=== PATIENT | female | born 1945 | race Caucasian/White ===

== ENCOUNTER 2019-01-18 11:59 | Emergency (ER) | payer OTHER ==
--- OUTSIDE RECORDS SUMMARY | 2019-01-18 12:39 | XMS REPORT ---
:1945 [facility] Address [address] [place] [address] Dr. Are[address]ano [address] [place] [address] Care Team Providers Name Role Phone Unavailable Unavailable Unavailable Problems This patient has no known problems. Allergies, Adverse Reactions, Alerts This patient has no known allergies or adverse reactions. Medications This patient has no known medications.
[2019-01-18 13:22] LABS: Basophils % 0.9 % (0-1.3); Eosinophils % 2.7 % (0-4.4); Hematocrit 42.8 % (36.0-45.0); MPV 8.6 fL (7.6-11.3); Monocytes % 5.8 % (3.3-12.3); RBC Red Blood Cell Count 4.58 M/uL (3.86-4.86)
[2019-01-18 13:38] LABS: Potassium 3.7 mmol/L (3.5-5.1)
[2019-01-18 13:42] LABS: Albumin 4.1 g/dL (3.4-5.0); Bilirubin Direct 0.2 mg/dL (0-0.2); Bilirubin Total 0.7 mg/dL (0.2-1.0); Protein, Total 7.7 g/dL (6.4-8.2)
[2019-01-18 13:47] LABS: Urine Bacteria NONE SEEN /HPF (<20); Urine Culture Reflex Order NOT NEEDED; Urine RBC <5 /HPF (NONE SEEN)
[2019-01-18 14:13] LABS: Urine Blood NEGATIVE (NEG); Urine Glucose NEGATIVE (NEG); Urine Protein NEGATIVE (NEG)
[2019-01-18] MEDS ORDERED: NA CHLORIDE 0.9% 500 ML ONE (14:16)
--- NOTE | 2019-01-18 14:43 | RAD REPORT ---
EXAM DESCRIPTION: CT - Abdomen Pelvis W Contrast - 01/18/2019 2:24 pm CLINICAL HISTORY: Abdominal pain with diarrhea COMPARISON: none. TECHNIQUE: Computed axial tomography of the abdomen pelvis was obtained. 100 cc Isovue-300 was admin istered intravenously. Oral contrast was not requested which limits evaluation of bowel. All CT scans are performed using dose optimization technique as appropriate and may include automated exposure control or mA/KV adjustment according to patient size. FINDINGS: The liver, spleen, pancreas, and adrenal appear unremarkable. Small renal cysts There is no evidence of diverticulitis. A hysterectomy has been performed IMPRESSION: No acute abnormality is displayed.
--- NOTE | 2019-01-18 15:13 | EDPHYS ---
Physician Documentation [facility] Name: Kayleigh Pena Age: 73 yrs Sex: Female : 1945 Arrival Date: 01/18/2019 Time: 12:02 Bed 24 Private MD: ED Physician Marcus Georges HPI: 01/18 13:49 This 73 yrs old Female presents to ER via Ambulatory with complaints of rn Diarrhea. 13:49 The patient presents to the emergency department with diarrhea. Onset: The rn symptoms/episode began/occurred 5 day(s) ago. Possible causes: unknown. The symptoms are aggravated by nothing. The symptoms are alleviated by nothing. Severity of symptoms: At their worst the symptoms were mild in the emergency department the symptoms are unchanged. The patient has not experienced similar symptoms in the past. Reports 5 days of non-bloody diarrhea, appears mucous like, no fever, no nausea/vomiting, denies abd pain. Took pepto bismol without resolution. Reports under a lot of stress lately. . Historical: - Allergies: 12:09 Neosporin ([id number]); bp 12:09 Tape; bp 12:09 Amoxicillin; bp 13:01 Morphine; ss - Home Meds: 12:09 Synthroid 88 mcg Oral tab 1 tab once daily [Active]; olmesartan-hydrochlorothiazide bp oral 40 - 12.5 oral 1 tab once daily for Hypertension [Active]; - PMHx: 12:09 Hypertension; bp - PSHx: 12:09 ; Hysterectomy; Tonsillectomy; Appendectomy; bp - Immunization history:: Adult Immunizations up to date. - Social history:: Smoking status: Patient/guardian denies using tobacco. - Ebola Screening: : No symptoms or risks identified at this time. - Family history:: not pertinent. - Hospitalizations: : No recent hospitalization is reported. ROS: 13:49 Constitutional: Negative for fever, chills, and weight loss, Eyes: Negative for injury, rn pain, redness, and discharge, Cardiovascular: Negative for chest pain, palpitations, and edema, Respiratory: Negative for shortness of breath, cough, wheezing, and pleuritic chest pain, Abdomen/GI: Negative for nausea, vomiting, and constipation, MS/Extremity: Negative for injury and deformity, Skin: Negative for injury, rash, and discoloration, Neuro: Negative for headache, numbness, tingling, and seizure, + generalized weakness Exam: 13:49 Constitutional: This is a well developed, well nourished patient who is awake, alert, rn and in no acute distress. Head/Face: Normocephalic, atraumatic. Eyes: Pupils equal round and reactive to light, extra-ocular motions intact. Lids and lashes normal. Conjunctiva and sclera are non-icteric and not injected. Cornea within normal limits. Periorbital areas with no swelling, redness, or edema. ENT: MMM Abdomen/GI: soft, non-tender, no masses Skin: Warm, dry with normal turgor. Normal color with no rashes, no lesions, and no evidence of cellulitis. MS/ Extremity: Pulses equal, no cyanosis. Neurovascular intact. Full, normal range of motion. Equal circumference. Neuro: Awake and alert, GCS 15, oriented to person, place, time, and situation. Cranial nerves II-XII grossly intact. Motor strength 5/5 in all extremities. Sensory grossly intact. Cerebellar exam normal. Vital Signs: 12:09 BP 176 / 73; Pulse 86; Resp 16; Temp 98; Pulse Ox 99% ; Weight 61.69 kg; Height 5 ft. 7 bp in. (170.18 cm); 13:09 BP 173 / 64 LA (auto/reg); Pulse 60; Resp 16; Temp 97.7; Pulse Ox 100% on R/A; Pain jp3 2/10; 14:00 BP 179 / 56 LA (/reg); Pulse 67; Pulse Ox 100% ; jp3 14:59 BP 151 / 61 LA; Pulse 58; Resp 16 S; Pulse Ox 99% on R/A; ca1 15:40 BP 166 / 60; Pulse 62; Resp 16; Temp 97.9(O); Pulse Ox 100% ; ca1 12:09 Body Mass Index 21.30 (61.69 kg, 170.18 cm) bp MDM: 13:00 Patient medically screened. rn 15:11 Differential diagnosis: diverticulitis, viral gastroenteritis, gastroenteritis, rn colitis. Data reviewed: vital signs, nurses notes, lab test result(s), radiologic studies, CT scan, and as a result, I will discharge patient. Counseling: I had a detailed discussion with the patient and/or guardian regarding: the historical points, exam findings, and any diagnostic results supporting the discharge/admit diagnosis, lab results, radiology results, the need for outpatient follow up, to return to the emergency department if symptoms worsen or persist or if there are any questions or concerns that arise at home. Response to treatment: the patient's symptoms have mildly improved after treatment, and as a result, I will discharge patient. Special discussion: I discussed with the patient/guardian in detail that at this point there is no indication for admission to the hospital. It is understood, however, that if the symptoms persist or worsen the patient needs to return immediately for re-evaluation. 01/18 13:01 Order name: Basic Metabolic Panel; Complete Time: 13:52 01/18 13:01 Order name: CBC with Diff; Complete Time: 13:52 01/18 13:01 Order name: Creatinine for Radiology; Complete Time: 13:52 01/18 13:01 Order name: Hepatic Function; Complete Time: 13:52 01/18 13:01 Order name: Lipase; Complete Time: 13:52 01/18 13:01 Order name: Urine Microscopic Only; Complete Time: 13:52 01/18 13:01 Order name: IV Saline Lock; Complete Time: 13: 01/18 13:01 Order name: Labs collected and sent; Complete Time: 13:17 01/18 13:01 Order name: Urine Dipstick-Ancillary (obtain specimen); Complete Time: 13:13 01/18 13:19 Order name: Urine Dipstick--Ancillary (enter results); Complete Time: 14:30 01/18 13:25 Order name: CT Abd/Pelvis - IV Contrast Only; Complete Time: 15:04 rn Administered Medications: 14:02 Drug: NS 0.9% 500 ml Route: IV; Rate: bolus; Site: right antecubital; ca1 14:58 Follow up: IV Status: Completed infusion ca1 15:15 Drug: LoMOTIL 2 tabs Route: PO; ca1 15:35 Follow up: Response: No adverse reaction ca1 Disposition: 01/18/19 15:12 Discharged to Home. Impression: Diarrhea, unspecified, Dehydration. - Condition is Stable. - Discharge Instructions: Dehydration, Adult, Diarrhea, Adult. - Medication Reconciliation Form, Thank You Letter, Antibiotic Education, Prescription Opioid Use form. - Follow up: Private Physician; When: As needed; Reason: Recheck today's complaints, Re-evaluation by your physician. - Problem is new. - Symptoms have improved. Signatures: Dispatcher [employer] EDMarcus Nascimento MD MD rn Smirch, Shelby RN RN ss Mitchell Dickson, RN RN bp Acob, Savanah, RN RN ca1 Corrections: (The following items were deleted from the chart) 13:51 13:49 Constitutional: Negative for fever, chills, and weight loss, Eyes: Negative for rn injury, pain, redness, and discharge, Cardiovascular: Negative for chest pain, palpitations, and edema, Respiratory: Negative for shortness of breath, cough, wheezing, and pleuritic chest pain, Abdomen/GI: Negative for nausea, vomiting, and constipation, MS/Extremity: Negative for injury and deformity, Skin: Negative for injury, rash, and discoloration, Neuro: Negative for headache, weakness, numbness, tingling, and seizure, rn 15:43 15:12 01/18/2019 15:12 Discharged to Home. Impression: Diarrhea, unspecified; ca1 Dehydration. Condition is Stable. Forms are Medication Reconciliation Form, Thank You Letter, Antibiotic Education, Prescription Opioid Use. Follow up: Private Physician; When: As needed; Reason: Recheck today's complaints, Re-evaluation by your physician. Problem is new. Symptoms have improved. rn
--- NOTE | 2019-01-18 15:13 | ER ---
Nurse's Notes [facility] Name: Kayleigh Pena Age: 73 yrs Sex: Female : 1945 Arrival Date: 01/18/2019 Time: 12:02 Bed 24 Private MD: Diagnosis: Diarrhea, unspecified;Dehydration Presentation: 01/18 12:07 Presenting complaint: Patient states: DIARRHEA x5 DAYS. Transition of care: patient was bp not received from another setting of care. Onset of symptoms is unknown. Risk Assessment: Do you want to hurt yourself or someone else? Patient reports no desire to harm self or others. Initial Sepsis Screen: Does the patient meet any 2 criteria? No. Patient's initial sepsis screen is negative. Does the patient have a suspected source of infection? No. Patient's initial sepsis screen is negative. Care prior to arrival: None. 12:07 Method Of Arrival: Ambulatory bp 12:07 Acuity: ROYA 3 bp Triage Assessment: 12:40 General: Appears in no apparent distress. comfortable, slender, Behavior is calm, bp cooperative, appropriate for age. Pain: Denies pain. EENT: No deficits noted. Neuro: Level of Consciousness is awake, alert, obeys commands, Oriented to person, place, time, situation, Appropriate for age. Cardiovascular: No deficits noted. Respiratory: Airway is patent Respiratory effort is even, unlabored. GI: Reports diarrhea. : No signs and/or symptoms were reported regarding the genitourinary system. Derm: No deficits noted. Musculoskeletal: No deficits noted. Historical: - Allergies: 12:09 Neosporin (itn-bog-ibvrc); bp 12:09 Tape; bp 12:09 Amoxicillin; bp 13:01 Morphine; ss - Home Meds: 12:09 Synthroid 88 mcg Oral tab 1 tab once daily [Active]; olmesartan-hydrochlorothiazide bp oral 40 - 12.5 oral 1 tab once daily for Hypertension [Active]; - PMHx: 12:09 Hypertension; bp - PSHx: 12:09 ; Hysterectomy; Tonsillectomy; Appendectomy; bp - Immunization history:: Adult Immunizations up to date. - Social history:: Smoking status: Patient/guardian denies using tobacco. - Ebola Screening: : No symptoms or risks identified at this time. - Family history:: not pertinent. - Hospitalizations: : No recent hospitalization is reported. Screenin:10 Abuse screen: Denies threats or abuse. Denies injuries from another. Nutritional ca1 screening: No deficits noted. Tuberculosis screening: No symptoms or risk factors identified. Fall Risk IV access (20 points). Assessment: 13:10 General: Appears in no apparent distress. comfortable, Behavior is calm, cooperative, ca1 appropriate for age. Pain: Complains of pain in abdomen Pain does not radiate. Pain currently is 2 out of 10 on a pain scale. Quality of pain is described as sore Pain began 2-3 days ago. Neuro: Level of Consciousness is awake, alert, obeys commands, Oriented to person, place, time, situation. Cardiovascular: Heart tones S1 S2 present Capillary refill < 3 seconds Patient's skin is warm and dry. Respiratory: Airway is patent Respiratory effort is even, unlabored, Respiratory pattern is regular, symmetrical, Breath sounds are clear bilaterally. GI: Abdomen is flat, non-distended, Bowel sounds present X 4 quads. Abd is soft and non tender X 4 quads. Reports diarrhea, since 5 days ago. : No deficits noted. No signs and/or symptoms were reported regarding the genitourinary system. EENT: No deficits noted. No signs and/or symptoms were reported regarding the EENT system. Derm: Skin is intact, is thin, with poor turgor Skin is pink, warm \T\ dry. Musculoskeletal: Circulation, motion, and sensation intact. Capillary refill < 3 seconds, Range of motion: intact in all extremities. 14:34 Reassessment: Patient appears in no apparent distress at this time. Patient and/or ca1 family updated on plan of care and expected duration. Pain level reassessed. Patient is alert, oriented x 3, equal unlabored respirations, skin warm/dry/pink. Pt back from CT scan. 15:40 Reassessment: Patient appears in no apparent distress at this time. Patient is alert, ca1 oriented x 3, equal unlabored respirations, skin warm/dry/pink. Vital Signs: 12:09 BP 176 / 73; Pulse 86; Resp 16; Temp 98; Pulse Ox 99% ; Weight 61.69 kg; Height 5 ft. 7 bp in. (170.18 cm); 13:09 BP 173 / 64 LA (auto/reg); Pulse 60; Resp 16; Temp 97.7; Pulse Ox 100% on R/A; Pain jp3 2/10; 14:00 BP 179 / 56 LA (/reg); Pulse 67; Pulse Ox 100% ; jp3 14:59 BP 151 / 61 LA; Pulse 58; Resp 16 S; Pulse Ox 99% on R/A; ca1 15:40 BP 166 / 60; Pulse 62; Resp 16; Temp 97.9(O); Pulse Ox 100% ; ca1 12:09 Body Mass Index 21.30 (61.69 kg, 170.18 cm) bp ED Course: 12:02 Patient arrived in ED. mr 12:07 Triage completed. bp 12:09 Arm band placed on. bp 13:00 Marcus Georges MD is Attending Physician. rn 13:01 Savanah Ovalle, PATRICIA is Primary Nurse. ca1 13:12 Bed in low position. Call light in reach. Side rails up X 1. Warm blanket given. Pillow jp3 given. Verbal reassurance given. Pulse ox on. NIBP on. 13:12 Urine collected: clean catch specimen, clear, froilan colored. jp3 13:15 No provider procedures requiring assistance completed. Inserted saline lock: 22 gauge ca1 in right antecubital area, using aseptic technique. Blood collected. 14:[address] via wheelchair. ca1 14:26 CT Abd/Pelvis - IV Contrast Only In Process Unspecified. EDMS 15:43 IV discontinued, intact, bleeding controlled, No redness/swelling at site. Pressure ca1 dressing applied. Administered Medications: 14:02 Drug: NS 0.9% 500 ml Route: IV; Rate: bolus; Site: right antecubital; ca1 14:58 Follow up: IV Status: Completed infusion ca1 15:15 Drug: LoMOTIL 2 tabs Route: PO; ca1 15:35 Follow up: Response: No adverse reaction ca1 Outcome: 15:12 Discharge ordered by . rn 15:43 Discharged to home ambulatory. ca1 15:43 Condition: stable 15:43 Discharge instructions given to patient, Instructed on discharge instructions, follow up and referral plans. Demonstrated understanding of instructions, follow-up care. 15:43 Patient left the ED. ca1 Signatures: Dispatcher [employer] EDIL Daiana Black mr Marcus Georges MD MD rn Smirch, Shelby, RN RN ss Peltier, Brian RN RN bp Aj Vazquez jp3 Savanah Ovalle, RN RN ca1
[2019-01-18] MEDS ORDERED: DIPHENOX/ATROP SULF 1 TAB PO ONE (15:30)
== END 2019-01-18 15:43 | disposition home or self-care (01) ==
LOC: ER 11:59
DX: E86.0 Dehydration (principal); I10 Essential (primary) hypertension; Z88.1 Allergy status to other antibiotic agents; Z88.3 Allergy status to other anti-infective agents; Z88.5 Allergy status to narcotic agent; Z88.8 Allergy status to other drugs, medicaments and biological substances
CPT/HCPCS: 85025; 80048; 36415; 80076; 83690; 74177; 96360; 99284; Q9967; 81003; 81015

== ENCOUNTER 2019-08-09 13:24 | Emergency (ER) | payer OTHER ==
--- OUTSIDE RECORDS SUMMARY | 2019-08-09 13:26 | XMS REPORT ---
:1945 [facility] Address [address] [place] [address] Dr. Are[address] [place] [address] Care Team Providers Name Role Phone Unavailable Unavailable Unavailable Problems This patient has no known problems. Allergies, Adverse Reactions, Alerts This patient has no known allergies or adverse reactions. Medications This patient has no known medications.
[2019-08-09] MEDS ORDERED: Mastisol Adhesive Liq ONE (15:16)
--- NOTE | 2019-08-09 15:35 | ER ---
Nurse's Notes [facility] Name: Kayleigh Pena Age: 73 yrs Sex: Female : 1945 Arrival Date: 08/09/2019 Time: 13:25 Bed 10 Private MD: Diagnosis: Laceration without foreign body of left forearm-skin tear Presentation: 08/09 13:49 Presenting complaint: Patient states: i took my dog who weighs 70 pounds to the vet and tw2 she got excited and she ran through the door and it pulled me forward and and the brick next to the door scrapped my arm up and the skin is pulled up. Transition of care: patient was not received from another setting of care. Onset of symptoms was August 09, 2019. Risk Assessment: Do you want to hurt yourself or someone else? Patient reports no desire to harm self or others. Initial Sepsis Screen: Does the patient meet any 2 criteria? No. Patient's initial sepsis screen is negative. Does the patient have a suspected source of infection? No. Patient's initial sepsis screen is negative. Care prior to arrival: Bleeding of injury controlled. coban dressing applied PRIOR to arrival, pt states "they didn't clean it at the vets office but they did wrap it for me". 13:49 Method Of Arrival: Ambulatory tw2 13:49 Acuity: ROYA 4 tw2 Triage Assessment: 13:51 General: Appears in no apparent distress. well groomed, Behavior is calm, cooperative, tw2 appropriate for age. Pain: Complains of pain in left arm. Injury Description: Abrasion sustained to left arm was sustained 2-4 hours ago. Historical: - Allergies: 13:53 Amoxicillin; tw2 13:53 Morphine; tw2 13:53 Neosporin ([id number]); tw2 13:53 Tape; tw2 - Home Meds: 13:53 Synthroid 88 mcg Oral tab 1 tab once daily [Active]; olmesartan-hydrochlorothiazide 40 tw2 - 12.5 Oral 1 tab once daily for Hypertension [Active]; - PMHx: 13:53 Hypertension; tw2 - PSHx: 13:53 Hysterectomy; ; Tonsillectomy; Appendectomy; tw2 - Immunization history:: Adult Immunizations Last tetanus immunization: "about 5 years ago". - Social history:: Smoking status: . - Ebola Screening: : Patient denies travel to an Ebola-affected area in the 21 days before illness onset. - Family history:: not pertinent. Screenin:46 Abuse screen: Denies threats or abuse. Nutritional screening: No deficits noted. tw2 Tuberculosis screening: No symptoms or risk factors identified. Fall Risk Secondary diagnosis (15 points) impaired mobility. Assessment: 15:00 General: Appears comfortable, Behavior is calm, cooperative. Pain: Complains of pain in aa5 left forearm Pain currently is 2 out of 10 on a pain scale. Quality of pain is described as tender, Is continuous. Neuro: Level of Consciousness is awake, alert, obeys commands, Oriented to person, place, time, situation. Cardiovascular: Patient's skin is warm and dry. Respiratory: Airway is patent Respiratory effort is even, unlabored, Respiratory pattern is regular, symmetrical. GI: No signs and/or symptoms were reported involving the gastrointestinal system. : No signs and/or symptoms were reported regarding the genitourinary system. EENT: No signs and/or symptoms were reported regarding the EENT system. Derm: Skin is pink, warm \\T\\ dry. Skin tear and bruising that is dark purple noted to left forearm. Musculoskeletal: Range of motion: intact in all extremities. 15:47 Reassessment: Patient is alert, oriented x 3, equal unlabored respirations, skin aa5 warm/dry/pink. Vital Signs: 13:53 BP 159 / 52; Pulse 64; Resp 17; Temp 97.7(TE); Pulse Ox 96% on R/A; Weight 63.64 kg tw2 (M); Height 5 ft. 7 in. (170.18 cm); Pain 2/10; 13:53 Body Mass Index 21.97 (63.64 kg, 170.18 cm) tw2 ED Course: 13:25 Patient arrived in ED. as 13:51 Triage completed. tw2 13:51 Arm band placed on. tw2 14:54 Quang eDcker MD is Attending Physician. reinaldo 15:00 Patient has correct armband on for positive identification. aa5 15:30 Assist provider with laceration repair on left forearm using Mastisol adhesive . Set up aa5 tray. Performed by Quang Decker MD Dressed with Non-adherent dressing and Kerlix Patient tolerated well. Wound cleaned with saline by Dr. Decker. 15:40 Amanda Live, RN is Primary Nurse. aa5 15:47 Patient did not have IV access during this emergency room visit. aa5 Administered Medications: 15:29 Drug: Tetanus-Diphtheria Toxoid Adult 0.5 ml {File Keeper: [employer]. Exp: aa5 08/19/2021. Lot #: [id number]. } Route: IM; Site: left deltoid; 15:47 Follow up: Response: No adverse reaction aa5 15:47 Drug: KeFLEX 500 mg Route: PO; aa5 15:47 Follow up: Response: Medication administered at discharge. aa5 Outcome: 15:32 Discharge ordered by . [facility] 15:47 Patient left the ED. aa 15:47 Discharged to home ambulatory. aa5 15:47 Condition: good 15:47 Discharge instructions given to patient, Instructed on discharge instructions, follow up and referral plans. medication usage, wound care, Demonstrated understanding of instructions, follow-up care, medications, wound care, Prescriptions given X 1. Signatures: Quang Decker MD MD cha Martinez, Amelia as Amanda Live, RN RN aa5 Shaila De Anda RN RN tw2 Corrections: (The following items were deleted from the chart) 15:49 15:45 Discharged to home ambulatory, [facility] aa 15:49 15:45 Condition: good aa aa 15:49 15:45 Discharge instructions given to patient, Instructed on discharge instructions, aa5 follow up and referral plans. medication usage, wound care, Demonstrated understanding of instructions, follow-up care, medications, wound care, Prescriptions given X 1, aa5
--- NOTE | 2019-08-09 15:35 | EDPHYS ---
Physician Documentation [facility] Name: Kayleigh Pena Age: 73 yrs Sex: Female : 1945 Arrival Date: 08/09/2019 Time: 13:25 Bed 10 Private MD: ED Physician Quang Decker HPI: 08/09 15:27 This 73 yrs old Female presents to ER via Ambulatory with complaints of Wound reinaldo Check. 15:27 Patient presents to ED for recheck of: laceration. The affected area is on the left reinaldo arm. Previous treatment:. Historical: - Allergies: 13:53 Amoxicillin; tw2 13:53 Morphine; tw2 13:53 Neosporin ([id number]); tw2 13:53 Tape; tw2 - Home Meds: 13:53 Synthroid 88 mcg Oral tab 1 tab once daily [Active]; olmesartan-hydrochlorothiazide 40 tw2 - 12.5 Oral 1 tab once daily for Hypertension [Active]; - PMHx: 13:53 Hypertension; tw2 - PSHx: 13:53 Hysterectomy; ; Tonsillectomy; Appendectomy; tw2 - Immunization history:: Adult Immunizations Last tetanus immunization: "about 5 years ago". - Social history:: Smoking status: . - Ebola Screening: : Patient denies travel to an Ebola-affected area in the 21 days before illness onset. - Family history:: not pertinent. ROS: 15:27 Constitutional: Negative for fever, chills, and weight loss, Eyes: Negative for injury, reinaldo pain, redness, and discharge, ENT: Negative for injury, pain, and discharge, Neck: Negative for injury, pain, and swelling, Cardiovascular: Negative for chest pain, palpitations, and edema, Respiratory: Negative for shortness of breath, cough, wheezing, and pleuritic chest pain, Abdomen/GI: Negative for abdominal pain, nausea, vomiting, diarrhea, and constipation, Back: Negative for injury and pain, : Negative for injury, bleeding, discharge, and swelling, Skin: Negative for injury, rash, and discoloration, Neuro: Negative for headache, weakness, numbness, tingling, and seizure, Psych: Negative for depression, anxiety, suicide ideation, homicidal ideation, and hallucinations, Allergy/Immunology: Negative for hives, rash, and allergies, Endocrine: Negative for neck swelling, polydipsia, polyuria, polyphagia, and marked weight changes, Hematologic/Lymphatic: Negative for swollen nodes, abnormal bleeding, and unusual bruising. 15:27 MS/extremity: Positive for laceration, of the dorsal aspect of left forearm. Exam: 15:27 Constitutional: This is a well developed, well nourished patient who is awake, alert, reinaldo and in no acute distress. Head/Face: Normocephalic, atraumatic. Eyes: Pupils equal round and reactive to light, extra-ocular motions intact. Lids and lashes normal. Conjunctiva and sclera are non-icteric and not injected. Cornea within normal limits. Periorbital areas with no swelling, redness, or edema. ENT: Nares patent. No nasal discharge, no septal abnormalities noted. Tympanic membranes are normal and external auditory canals are clear. Oropharynx with no redness, swelling, or masses, exudates, or evidence of obstruction, uvula midline. Mucous membranes moist. Neck: Trachea midline, no thyromegaly or masses palpated, and no cervical lymphadenopathy. Supple, full range of motion without nuchal rigidity, or vertebral point tenderness. No Meningismus. Chest/axilla: Normal chest wall appearance and motion. Nontender with no deformity. No lesions are appreciated. Cardiovascular: Regular rate and rhythm with a normal S1 and S2. No gallops, murmurs, or rubs. Normal PMI, no JVD. No pulse deficits. Respiratory: Lungs have equal breath sounds bilaterally, clear to auscultation and percussion. No rales, rhonchi or wheezes noted. No increased work of breathing, no retractions or nasal flaring. Abdomen/GI: Soft, non-tender, with normal bowel sounds. No distension or tympany. No guarding or rebound. No evidence of tenderness throughout. Back: No spinal tenderness. No costovertebral tenderness. Full range of motion. Skin: Warm, dry with normal turgor. Normal color with no rashes, no lesions, and no evidence of cellulitis. Neuro: Awake and alert, GCS 15, oriented to person, place, time, and situation. Cranial nerves II-XII grossly intact. Motor strength 5/5 in all extremities. Sensory grossly intact. Cerebellar exam normal. Normal gait. Psych: Awake, alert, with orientation to person, place and time. Behavior, mood, and affect are within normal limits. 15:27 Musculoskeletal/extremity: Extremities: grossly normal except: noted in the dorsal aspect of left forearm: laceration, ROM: no acute changes, Circulation is intact in all extremities. Sensation intact. Compartment Syndrome exam of affected extremity: is normal. DVT Exam: no swelling, negative Homans' sign noted on exam, no appreciated bluish discoloration, no erythema, no increased warmth, pain, tenderness. Vital Signs: 13:53 BP 159 / 52; Pulse 64; Resp 17; Temp 97.7(TE); Pulse Ox 96% on R/A; Weight 63.64 kg tw2 (M); Height 5 ft. 7 in. (170.18 cm); Pain 2/10; 13:53 Body Mass Index 21.97 (63.64 kg, 170.18 cm) tw2 MDM: 14:54 Patient medically screened. [facility] 08/09 15:27 Order name: Wound Care; Complete Time: 15:42 [facility] Administered Medications: 15:29 Drug: Tetanus-Diphtheria Toxoid Adult 0.5 ml {[employer]ma Fighter: [employer]. Exp: aa5 08/19/2021. Lot #: [id number]. } Route: IM; Site: left deltoid; 15:47 Follow up: Response: No adverse reaction [facility] 15:47 Drug: KeFLEX 500 mg Route: PO; 5 15:47 Follow up: Response: Medication administered at discharge. 5 Disposition: 08/09/19 15:32 Discharged to Home. Impression: Laceration without foreign body of left forearm - skin tear. - Condition is Stable. - Discharge Instructions: Laceration Care, Adult, Skin Tear Care, Laceration Care, Adult, Urqk-[id number], Skin Tear Care, [id number]-[id number]. - Prescriptions for Keflex 250 mg Oral Capsule - take 1 capsule by ORAL route every 6 hours for 10 days; 28 capsule. - Medication Reconciliation Form, Thank You Letter, Antibiotic Education, Prescription Opioid Use form. - Follow up: Private Physician; When: 5 - 6 days; Reason: Recheck today's complaints, Continuance of care, Re-evaluation by your physician. - Problem is new. - Symptoms have improved. Signatures: Quang Decker MD MD [facility] Amanda Live RN RN aa5 Shaila De Anda RN RN tw2 Corrections: (The following items were deleted from the chart) 15:47 15:32 08/09/2019 15:32 Discharged to Home. Impression: Laceration without foreign body aa5 of left forearm - skin tear. Condition is Stable. Forms are Medication Reconciliation Form, Thank You Letter, Antibiotic Education, Prescription Opioid Use. Follow up: Private Physician; When: 5 - 6 days; Reason: Recheck today's complaints, Continuance of care, Re-evaluation by your physician. Problem is new. Symptoms have improved. reinaldo
[2019-08-09] MEDS ORDERED: TETANUS & DIPHTHERIA TOX,ADULT 0.5 ML VIAL ONE (15:36)
[2019-08-09] MEDS ORDERED: CEPHALEXIN 250 MG CAP ONE (15:47)
[2019-08-09 16:04] VITALS: BP 159/52; TEMP 97.7; O2SAT 96
== END 2019-08-09 15:47 | disposition home or self-care (01) ==
LOC: ER 13:24
DX: S51.812A Laceration without foreign body of left forearm, initial encounter (principal); W45.8XXA Other foreign body or object entering through skin, initial encounter; W22.01XA Walked into wall, initial encounter; Y93.89 Activity, other specified; Y92.89 Other specified places as the place of occurrence of the external cause; Z23 Encounter for immunization; Z88.1 Allergy status to other antibiotic agents; Z88.6 Allergy status to analgesic agent
CPT/HCPCS: 90471; 90714; 99283

== ENCOUNTER 2020-07-08 14:01 | Emergency (ER) | payer OTHER ==
--- OUTSIDE RECORDS SUMMARY | 2020-07-08 14:04 | XMS REPORT | Continuity of Care Document ---
:1945 Author Organization [facility] Address [address] [place] [address] [address] [place] [address] Care Team Providers Name Role Phone Unavailable Unavailable Unavailable Problems This patient has no known problems. Allergies, Adverse Reactions, Alerts This patient has no known allergies or adverse reactions. Medications This patient has no known medications. Procedures This patient has no known procedures. Results This patient has no known results.
--- NOTE | 2020-07-08 15:36 | RAD REPORT ---
EXAM DESCRIPTION: RAD - Knee Right 3 View - 07/08/2020 3:11 pm CLINICAL HISTORY: Right knee pain status post injury FINDINGS: No fracture or dislocation is seen. Small to moderate joint effusion. Osteoporosis If the patient continues to have symptoms to suggest an occult fracture, ligamentous or meniscal inju ry then MRI would be recommended
--- NOTE | 2020-07-08 15:48 | RAD REPORT ---
EXAM DESCRIPTION: CT - Head C Spine Mpr Wo Con - 07/08/2020 3:32 pm CLINICAL HISTORY: Head and neck injury status post fall. Head and neck pain COMPARISON: March [address] 2013 cervical spine TECHNIQUE: Computed axial tomography of the head and cervical spine was obtained. Sagittal and coronal reconstruction was performed. All CT scans are performed using dose optimization technique as appropriate and may include automated exposure control or mA/KV adjustment according to patient size. FINDINGS: An intracranial bleed is not seen. The ventricles are normal in caliber. An extra-axial fl uid collection is not noted.Fluid within the visualized sinuses and mastoids is not seen Loss of the normal lordosis of the cervical spine is unchanged from 2014. A cervical fracture is not visualized. No dislocation is noted. Mild chronic anterior subluxation C4 on C5. Mild posterior subluxation of C6 on C7. . Spondylosis involves mid and distal cervical spine IMPRESSION: No acute intracranial abnormality is seen. A cervical fracture is not visualized. If the patient continues to have symptoms to suggest intracra nial /spinal cord pathology then MRI would be recommended
--- NOTE | 2020-07-08 16:00 | ER ---
Nurse's Notes [facility] Name: Kayleigh Pena Age: 74 yrs Sex: Female : 1945 Arrival Date: 07/08/2020 Time: 14:04 Bed 13 Private MD: Diagnosis: Contusion of right knee;Effusion, right knee Presentation: 07/08 14:15 Chief complaint: Patient states: Tripped on concrete . R knee pain and swelling ll1 since. No LOC. Slight right hand 5th digit tenderness. + MARIO and neck pain since. Coronavirus screen: Client denies travel out of the [place] in the last 14 days. At this time, the client does not indicate any symptoms associated with coronavirus-19. Ebola Screen: Patient denies travel to an Ebola-affected area in the 21 days before illness onset. Initial Sepsis Screen: Does the patient meet any 2 criteria? No. Patient's initial sepsis screen is negative. Does the patient have a suspected source of infection? Yes: Bone or joint infection. Risk Assessment: Do you want to hurt yourself or someone else? Patient reports no desire to harm self or others. Onset of symptoms was July 06, 2020. 14:15 Method Of Arrival: Wheelchair ll1 14:15 Acuity: ROYA 3 ll1 Historical: - Allergies: 14:14 Amoxicillin; ll1 14:14 Morphine; ll1 14:14 Neosporin ([id number]); ll1 14:14 PENICILLINS; ll1 14:14 Tape; ll1 - PMHx: 14:14 Hypertension; ll1 - PSHx: 14:14 Appendectomy; Tonsillectomy; ; Hysterectomy; ll1 - Immunization history:: Flu vaccine is up to date. - Social history:: Smoking status: Patient denies any tobacco usage or history of. - Family history:: not pertinent. - Hospitalizations: : No recent hospitalization is reported. Screenin:58 Abuse screen: Denies threats or abuse. Nutritional screening: No deficits noted. Tuberculosis screening: No symptoms or risk factors identified. Fall Risk None identified. Assessment: 14:25 General: Appears in no apparent distress. Behavior is calm, cooperative, appropriate for age. Pain: Complains of pain in right knee Pain currently is 5 out of 10 on a pain scale. Quality of pain is described as aching, Pain began 1 day ago. Neuro: Level of Consciousness is awake, alert, obeys commands, Oriented to person, place, time, situation, Appropriate for age. Cardiovascular: Capillary refill < 3 seconds Patient's skin is warm and dry. Respiratory: Airway is patent Respiratory effort is even, unlabored. GI: No signs and/or symptoms were reported involving the gastrointestinal system. Derm: No signs and/or symptoms reported regarding the dermatologic system. Skin is intact, is healthy with good turgor. Musculoskeletal: Circulation, motion, and sensation intact. Capillary refill < 3 seconds, Range of motion: limited in right knee Swelling present in right knee discoloration noted to right knee. 16:36 Reassessment:. Vital Signs: 14:15 BP 154 / 58; Pulse 83; Resp 17; Temp 97.3; Pulse Ox 100% ; Weight 62.14 kg; Height 5 ll1 ft. 7 in. (170.18 cm); Pain 10/10; 14:15 Body Mass Index 21.46 (62.14 kg, 170.18 cm) ll1 ED Course: 14:04 Patient arrived in ED. ds1 14:15 Arm band placed on Patient placed in an exam room, on a stretcher. 1 14:18 Triage completed. 1 14:18 Marcus Georges MD is Attending Physician. rn 14:38 Velma Montana, RN is Primary Nurse. 15:11 XRAY Knee RIGHT 3 view In Process Unspecified. EDMS 15:32 CT Head C Spine In Process Unspecified. EDMS 15:59 Bahman David MD is Referral Physician. rn 15:59 Patient has correct armband on for positive identification. Administered Medications: No medications were administered Outcome: 15:59 Discharge ordered by . rn 17:12 Patient left the ED. Signatures: Dispatcher [employer] EDMO Imelda Muñoz ds1 Marcus Georges MD MD rn Smirch, Shelby, RN RN Velma Montana RN RN ah Lewis, Lynsay, RN RN 1
--- NOTE | 2020-07-08 16:00 | EDPHYS ---
Physician Documentation [facility] Name: Kayleigh Pena Age: 74 yrs Sex: Female : 1945 Arrival Date: 07/08/2020 Time: 14:04 Bed 13 Private MD: ED Physician Marcus Goerges HPI: 07/08 14:50 This 74 yrs old Female presents to ER via Wheelchair with complaints of Knee rn Injury. 14:50 The patient presents with an injury, pain. The complaints affect the right knee. Onset: rn The symptoms/episode began/occurred yesterday. Modifying factors: The symptoms are alleviated by nothing. the symptoms are aggravated by movement, weight bearing, bending knee. Associated signs and symptoms: Pertinent negatives fever, weakness. Severity of symptoms: At their worst the symptoms were moderate, in the emergency department the symptoms are unchanged. The patient has not experienced similar symptoms in the past. The patient has not recently seen a physician. Reports fall from standing yesterday morning, fell directly onto right knee, heard a pop, then hit head. Reports head and neck pain, mild, is here more for knee pain. No LOC. Not on blood thinner. No vomiting. . Historical: - Allergies: 14:14 Amoxicillin; ll1 14:14 Morphine; ll1 14:14 Neosporin ([id number]); ll1 14:14 PENICILLINS; ll1 14:14 Tape; ll1 - PMHx: 14:14 Hypertension; ll1 - PSHx: 14:14 Appendectomy; Tonsillectomy; ; Hysterectomy; ll1 - Immunization history:: Flu vaccine is up to date. - Social history:: Smoking status: Patient denies any tobacco usage or history of. - Family history:: not pertinent. - Hospitalizations: : No recent hospitalization is reported. ROS: 14:50 Constitutional: Negative for fever, chills, and weight loss, Eyes: Negative for injury, rn pain, redness, and discharge, Neck: Negative for swelling Cardiovascular: Negative for chest pain, palpitations, and edema, Respiratory: Negative for shortness of breath, cough, wheezing, and pleuritic chest pain, Abdomen/GI: Negative for abdominal pain, nausea, vomiting, diarrhea, and constipation, Back: Negative for injury and pain, MS/Extremity: Negative for deformity Skin: Negative for injury, rash, and discoloration, Neuro: Negative for weakness, numbness, tingling, and seizure. Exam: 14:50 Constitutional: This is a well developed, well nourished patient who is awake, alert, rn and in no acute distress. Head/Face: Normocephalic, atraumatic. Neck: Supple, full range of motion MS/ Extremity: Pulses equal, no cyanosis. Neurovascular intact. Painful ROM with extension/flexion right knee, + small swelling and ecchymosis along inferior patella, no crepitus. No open wounds. Neuro: Awake and alert, GCS 15, oriented to person, place, time, and situation. Cranial nerves II-XII grossly intact. Motor strength 5/5 in all extremities. Sensory grossly intact. Cerebellar exam normal. Vital Signs: 14:15 BP 154 / 58; Pulse 83; Resp 17; Temp 97.3; Pulse Ox 100% ; Weight 62.14 kg; Height 5 ll1 ft. 7 in. (170.18 cm); Pain 10/10; 14:15 Body Mass Index 21.46 (62.14 kg, 170.18 cm) ll1 MDM: 14:18 Patient medically screened. rn 15:58 Differential diagnosis: closed fracture, contusion. Data reviewed: vital signs, nurses rn notes, radiologic studies, CT scan, plain films, and as a result, I will discharge patient. Counseling: I had a detailed discussion with the patient and/or guardian regarding: the historical points, exam findings, and any diagnostic results supporting the discharge/admit diagnosis, lab results, radiology results, the need for outpatient follow up, to return to the emergency department if symptoms worsen or persist or if there are any questions or concerns that arise at home. Special discussion: I discussed with the patient/guardian in detail that at this point there is no indication for admission to the hospital. It is understood, however, that if the symptoms persist or worsen the patient needs to return immediately for re-evaluation. Further emergent ED testing is not indicated at this point in time. I discussed with the patient/guardian in detail the need to arrange with the PCP or specialist further outpatient testing, MRI, Based on the history and exam findings, there is no indication for further emergent testing or inpatient evaluation. I discussed with the patient/guardian the need to see the orthopedic surgeon for further evaluation of the symptoms. 07/08 14:32 Order name: XRAY Knee RIGHT 3 view; Complete Time: 15:52 rn 07/08 14:32 Order name: CT Head C Spine; Complete Time: 15:52 rn 07/08 16:00 Order name: Knee Immobilizer; Complete Time: 16:35 rn Administered Medications: No medications were administered Disposition: 07/08/20 15:59 Discharged to Home. Impression: Contusion of right knee, Effusion, right knee. - Condition is Stable. - Discharge Instructions: Knee Effusion, Knee Pain. - Medication Reconciliation Form, Thank You Letter, Antibiotic Education, Prescription Opioid Use form. - Follow up: Bahman David MD; When: As needed; Reason: Recheck today's complaints, Re-evaluation by your physician. - Problem is new. - Symptoms have improved. Signatures: Dispatcher [employer] EDMS Marcus Georges MD MD rn Smirch, Shelby, RN RN ss Lewis, Lynsay, RN RN ll1 Corrections: (The following items were deleted from the chart) 17:12 15:59 07/08/2020 15:59 Discharged to Home. Impression: Contusion of right knee; ss Effusion, right knee. Condition is Stable. Forms are Medication Reconciliation Form, Thank You Letter, Antibiotic Education, Prescription Opioid Use. Follow up: Bahman David; When: As needed; Reason: Recheck today's complaints, Re-evaluation by your physician. Problem is new. Symptoms have improved. rn
[2020-07-13 03:46] VITALS: BP 154/58; TEMP 97.3; O2SAT 100
== END 2020-07-08 17:12 | disposition home or self-care (01) ==
LOC: ER 14:01
DX: M25.461 Effusion, right knee (principal); S80.01XA Contusion of right knee, initial encounter; W19.XXXA Unspecified fall, initial encounter; Y93.9 Activity, unspecified; Y92.9 Unspecified place or not applicable; Z88.0 Allergy status to penicillin; Z88.1 Allergy status to other antibiotic agents; Z88.5 Allergy status to narcotic agent; Z91.048 Other nonmedicinal substance allergy status; I10 Essential (primary) hypertension
CPT/HCPCS: 70450; 72125; 99282

== ENCOUNTER 2021-05-15 16:50 | Emergency (ER) | payer OTHER ==
--- NOTE | 2021-05-15 17:57 | RAD REPORT ---
EXAM DESCRIPTION: CT - CTFB CLINICAL HISTORY: FACIAL PAIN COMPARISON: No comparisons TECHNIQUE: Axial 2 mm thick images of the face were obtained with sagittal and coronal reconstructio n images. All CT scans are performed using dose optimization technique as appropriate and may include automated exposure control or mA/KV adjustment according to patient size. FINDINGS: No acute facial bone fracture is seen.The mandible is intact. The globes and orbital contents are grossly unremarkable.The paranasal sinuses and mastoids are clear . IMPRESSION: Negative for facial bone fracture.
--- NOTE | 2021-05-15 18:00 | RAD REPORT ---
EXAM DESCRIPTION: CT - [id number] - 05/15/2021 5:50 pm CLINICAL HISTORY: Trauma, head and neck injury. PAIN COMPARISON: Head C Spine Mpr Wo Con dated 07/08/2020; [id number] dated 12/09/2013 TECHNIQUE: Axial 5 mm thick images of the head were obtained. Axial 2 mm thick images of the cervical spine were obtained with sagittal and coronal reconstruction images generated and reviewed. All CT scans are performed using dose optimization technique as appropriate and may include automated exposure control or mA/KV adjustment according to patient size. FINDINGS: CT HEAD WITHOUT CONTRAST: No acute hemorrhage, hydrocephalus or extra-axial collection is identified.No areas of brain edema or midline shift. Mild chronic small vessel ischemic changes The paranasal sinuses and mastoids are clear.The calvarium is intact. CT CERVICAL SPINE WITHOUT CONTRAST: No fracture or subluxation.No prevertebral soft tissues swelling is identified. Reversal of the nat l cervical lordosis which is likely related to underlying degenerative changes. IMPRESSION: No acute intracranial or cervical spine findings.
--- NOTE | 2021-05-15 18:03 | RAD REPORT ---
EXAM DESCRIPTION: CT - Thorax Wo Con - 05/15/2021 5:50 pm CLINICAL HISTORY: PAIN COMPARISON: THORAX WO CONTRAST dated 12/07/2013 FINDINGS: Chest Wall: No suspicious thyroid nodules or pathologic lymphadenopathy. Lungs: No acute abnormality. Pleura: No significant effusions or pneumothorax. Mediastinum/angelito: No pathologic lymphadenopathy. Pulmonary arteries/Aorta: No aortic aneurysm. Atherosclerosis. Heart: No significant pericardial effusion. Normal heart size. Upper abdomen: No acute abnormality. Bones: No acute abnormality. All CT scans are performed using dose optimization technique as appropriate and may include automated exposure control or mA/KV adjustment according to patient size. IMPRESSION: No evidence of significant trauma to the chest.
[2021-05-15] MEDS ORDERED: TRAMADOL 37.5mg/APAP 325mg PER TAB ONE (18:11)
--- NOTE | 2021-05-15 18:23 | RAD REPORT ---
EXAM DESCRIPTION: RAD - Knee Right 3 View - 05/15/2021 6:04 pm CLINICAL HISTORY: PAIN COMPARISON: Knee Right 3 View dated 07/08/2020 FINDINGS: Findings concerning for nondisplaced fracture involving the inferior third of the patella. This is only seen on the lateral view. A knee effusion is present. No other fractures are identified . No malalignment. IMPRESSION: Nondisplaced patellar fracture is suspected.
--- NOTE | 2021-05-15 19:29 | EDPHYS ---
Physician Documentation [facility] Name: Kayleigh Pena Age: 75 yrs Sex: Female : 1945 Arrival Date: 05/15/2021 Time: 16:54 Bed 19 Private MD: ED Physician Kayode Barone HPI: 05/15 19:38 This 75 yrs old Female presents to ER via Wheelchair with complaints of Fall kb Injury. 19:38 Details of fall: The patient fell from an upright position, while walking. Onset: The kb symptoms/episode began/occurred just prior to arrival. Associated injuries: The patient sustained injury to the head, contusion, laceration, pain, swelling, tenderness, injury to the chest, specifically the left lateral anterior chest, pain with breathing, pain with movement, tenderness. Severity of symptoms: At their worst the symptoms were moderate, in the emergency department the symptoms are unchanged. The patient has not experienced similar symptoms in the past. The patient has not recently seen a physician. Pt reports she was walking through living room and fell. Denies lightheadedness, dizziness, chest pain, shortness of breath or any other symptoms prior to fall. Denies LOC. Reports pain to left cheek, right knee, laceration above left eyebrow, and skin tear to left wrist.. Historical: - Allergies: 17:10 Morphine; ap3 17:10 PENICILLINS; ap3 17:10 Neosporin ([id number]); ap3 17:10 Tape; ap3 17:10 Amoxicillin; ap3 - Home Meds: 17:10 Synthroid 50 mcg oral tab [Active]; ap3 - PMHx: 17:10 Hypertension; ap3 - Immunization history:: Adult Immunizations up to date, Client reports receiving the Rashi \T\ Rashi single-dose vaccine. - Social history:: Smoking status: Patient denies any tobacco usage or history of. ROS: 19:35 Constitutional: Negative for fever, chills, and weight loss. kb 19:35 Cardiovascular: Positive for chest pain, with movement, of the left lateral anterior chest, Negative for edema, orthopnea, palpitations, paroxysmal nocturnal dyspnea. 19:35 MS/extremity: Positive for pain, of the right knee. 19:35 Skin: Positive for laceration(s), of the left side of forehead. 19:35 Skin: Positive for skin tear left wrist. 19:35 Neuro: Positive for headache. 19:35 All other systems are negative. Exam: 19:36 Constitutional: This is a well developed, well nourished patient who is awake, alert, kb and in no acute distress. 19:36 Head/face: Noted is no obvious of injury or deformity except contusion, that is superficial, of the left cheek, a laceration(s), that is superficial, of the left side of forehead. 19:36 Chest/axilla: Inspection: normal, Palpation: tenderness, that is moderate, of the left lateral anterior chest, that totally reproduces the patient's complaints. 19:36 Musculoskeletal/extremity: Extremities: grossly normal except: noted in the right knee: pain, swelling, ROM: intact in all extremities, Circulation is intact in all extremities. Sensation intact. Weight bearing: able to fully bear weight. 19:36 Skin: injury, laceration(s), the wound is approximately 2 cm(s), of the left side of forehead, the second wound is approximately 3 cm(s), of the left side of forehead, that can be described as clean, no foreign body, linear, without bleeding. Vital Signs: 17:08 BP 160 / 78; Pulse 66; Resp 18; Temp 97.8; Pulse Ox 100% on R/A; Weight 62.6 kg; Height ap3 5 ft. 7 in. (170.18 cm); Pain 8/10; 18:05 BP 155 / 77; Pulse 59; Resp 17; Pulse Ox 100% ; ap3 18:39 BP 168 / 71; Pulse Ox 99% on R/A; ap3 17:08 Body Mass Index 21.61 (62.60 kg, 170.18 cm) ap3 Laceration: 19:25 Wound Repair of 2cm ( 0.8in ) subcutaneous laceration to left side of forehead. Linear kb shaped.. Distal neuro/vascular/tendon intact. Anesthesia: Wound infiltrated with 1 mls of 1% lidocaine w/ Epi. Wound prep: Moderate cleansing with betadine by me, Wound irrigation with saline by me. Skin closed with 3 5-0 fast absorbing gut using simple sutures and sterile technique. Patient tolerated well. 19:25 Wound Repair of 3cm ( 1.2in ) subcutaneous laceration to left side of forehead. Linear kb shaped.. Distal neuro/vascular/tendon intact. Anesthesia: Wound infiltrated with 1 mls of 1% lidocaine w/ Epi. Wound prep: Moderate cleansing with betadine by me, Wound irrigation with saline by me. Skin closed with 5 5-0 fast absorbing gut using simple sutures and sterile technique. Patient tolerated well. MDM: 17:13 Patient medically screened. kb 19:25 Data reviewed: vital signs, nurses notes. Data interpreted: Pulse oximetry: on room air kb is 99 %. Interpretation: normal. Counseling: I had a detailed discussion with the patient and/or guardian regarding: the historical points, exam findings, and any diagnostic results supporting the discharge/admit diagnosis, lab results, radiology results, the need for outpatient follow up, a family practitioner, to return to the emergency department if symptoms worsen or persist or if there are any questions or concerns that arise at home. 05/15 17:27 Order name: CT Facial Bones W/O Con; Complete Time: 18:05 kb 05/15 17:27 Order name: CT Head C Spine; Complete Time: 18:05 kb 05/15 17:27 Order name: CT Chest Wo Con; Complete Time: 18:05 kb 05/15 17:27 Order name: Knee Right 3 View XRAY; Complete Time: 18:27 kb 05/15 18:06 Order name: Dressing - Wound; Complete Time: 19:59 kb 05/15 18:06 Order name: Gloves, Sterile; Complete Time: 18:17 kb 05/15 18:06 Order name: Setup Suture Tray; Complete Time: 18:18 kb 05/15 19:18 Order name: Knee Immobilizer; Complete Time: 19:39 kb Administered Medications: 18:03 Drug: traMADol 50 mg Route: PO; ap3 19:12 Drug: Zofran (Ondansetron) 4 mg Route: PO; lh3 Disposition: 22:53 Co-signature as Attending Physician, Kayode Barone MD I agree with the assessment and kdr plan of care. Disposition Summary: 05/15/21 19:28 Discharge Ordered Location: Home kb Condition: Stable kb Diagnosis - Fall on same level from slipping, tripping and stumbling without subsequent kb striking against object - Laceration without foreign body of other part of head - above left eyebrow kb - Nondisplaced fracture right patella kb - Unspecified injury of head, initial encounter kb - Skin tear left wrist kb Followup: kb - With: Emergency Department - When: As needed - Reason: Worsening of condition Followup: kb - With: Private Physician - When: 2 - 3 days - Reason: Recheck today's complaints, Continuance of care, Re-evaluation by your physician Discharge Instructions: - Discharge Summary Sheet kb - Musculoskeletal Pain kb - Facial Laceration, Plqv-zy-[id number] kb - Head Injury, Adult, [id number]-[id number] kb - Acute Knee Pain, Adult, Inia-dw-Vzui kb Forms: - Medication Reconciliation Form kb - Thank You Letter kb - Antibiotic Education kb - Prescription Opioid Use kb Prescriptions: - Tramadol 50 mg Oral Tablet - take 1 tablet by ORAL route every 8 hours as needed; 12 tablet; Refills: 0, kb Product Selection Permitted Signatures: Dispatcher [employer] EDMS Aylin Wooten, FISH SMOKER-C FISH SMOKER-Vamshib Kayode Barone MD MD kdr Prokisch, Amanda RN RN ap3 Kayla Caldwell RN RN lh3
--- NOTE | 2021-05-15 19:29 | ER ---
Nurse's Notes [facility] Name: Kayleigh Pena Age: 75 yrs Sex: Female : 1945 Arrival Date: 05/15/2021 Time: 16:54 Bed 19 Private MD: Diagnosis: Fall on same level from slipping, tripping and stumbling without subsequent striking against object;Laceration without foreign body of other part of head-above left eyebrow;Nondisplaced fracture right patella;Unspecified injury of head, initial encounter;Skin tear left wrist Presentation: 05/15 17:08 Chief complaint: Patient states: she fell at home. denies LOC. Patient has head lac to ap3 left forehead, lac to left elbow, lac to left wrist. Patient denies taking any blood thinners. Patient states she was on the floor for 20 minutes before family arrived to help her up. Coronavirus screen: At this time, the client does not indicate any symptoms associated with coronavirus-19. Ebola Screen: No symptoms or risks identified at this time. Initial Sepsis Screen: Does the patient meet any 2 criteria? No. Patient's initial sepsis screen is negative. Does the patient have a suspected source of infection? No. Patient's initial sepsis screen is negative. Risk Assessment: Do you want to hurt yourself or someone else? Patient reports no desire to harm self or others. Onset of symptoms was May 15, 2021. 17:08 Method Of Arrival: Wheelchair ap3 17:08 Acuity: ROYA 3 ap3 Triage Assessment: 17:12 General: Appears uncomfortable, Behavior is cooperative. Pain: Complains of pain in ap3 head, left elbow, left wrist, right knee, left cheek, teeth Pain currently is 8 out of 10 on a pain scale. Pain began suddenly. EENT: No signs and/or symptoms were reported regarding the EENT system. Neuro: Level of Consciousness is awake, alert, obeys commands, Oriented to person, place, time, situation, Appropriate for age Moves all extremities. Gait is unsteady, Speech is normal. Cardiovascular: Denies chest pain, Capillary refill < 3 seconds Patient's skin is warm and dry. Respiratory: Airway is patent Respiratory effort is even, unlabored, Respiratory pattern is regular, symmetrical. GI: No signs and/or symptoms were reported involving the gastrointestinal system. : No signs and/or symptoms were reported regarding the genitourinary system. Derm: Wound noted left forehead, left wrist, left elbow. Historical: - Allergies: 17:10 Morphine; ap3 17:10 PENICILLINS; ap3 17:10 Neosporin ([id number]); ap3 17:10 Tape; ap3 17:10 Amoxicillin; ap3 - Home Meds: 17:10 Synthroid 50 mcg oral tab [Active]; ap3 - PMHx: 17:10 Hypertension; ap3 - Immunization history:: Adult Immunizations up to date, Client reports receiving the Rashi \T\ Rashi single-dose vaccine. - Social history:: Smoking status: Patient denies any tobacco usage or history of. Screenin:15 Abuse screen: Denies threats or abuse. Nutritional screening: No deficits noted. ap3 Tuberculosis screening: No symptoms or risk factors identified. Fall Risk Fall in past 12 months (25 points). No IV (0 pts). Ambulatory Aid- None/Bed Rest/Nurse Assist (0 pts). Gait- Weak (10 pts.). Mental Status- Oriented to own ability (0 pts). Total Zelaya Fall Scale indicates Low Risk Score (25-44 pts). Fall prevention measures have been instituted. Side Rails Up X 2 Frequent Obs/Assesments occuring Family Present and informed to notify staff if they need to leave bedside. Vital Signs: 17:08 BP 160 / 78; Pulse 66; Resp 18; Temp 97.8; Pulse Ox 100% on R/A; Weight 62.6 kg; Height ap3 5 ft. 7 in. (170.18 cm); Pain 8/10; 18:05 BP 155 / 77; Pulse 59; Resp 17; Pulse Ox 100% ; ap3 18:39 BP 168 / 71; Pulse Ox 99% on R/A; ap3 17:08 Body Mass Index 21.61 (62.60 kg, 170.18 cm) ap3 ED Course: 16:54 Patient arrived in ED. ds1 17:08 Beatrice Avendano, PATRICIA is Primary Nurse. ap3 17:10 Triage completed. ap3 17:12 Aylin [facility]oot[facility]C [facility]. kb 17:12 Kayode Barone MD is Attending Physician. kb 17:16 Arm band placed on right wrist. ap3 17:16 Patient has correct armband on for positive identification. Bed in low position. Call ap3 light in reach. Side rails up X2. Adult w/ patient. Pulse ox on. NIBP on. Door closed. Noise minimized. Warm blanket given. 17:50 CT Chest Wo Con In Process Unspecified. EDMS 17:50 CT Facial Bones W/O Con In Process Unspecified. EDMS 17:50 CT Head C Spine In Process Unspecified. EDMS 18:04 Knee Right 3 View XRAY In Process Unspecified. EDMS Administered Medications: 18:03 Drug: traMADol 50 mg Route: PO; ap3 19:12 Drug: Zofran (Ondansetron) 4 mg Route: PO; lh3 Outcome: 19:28 Discharge ordered by . kb 19:59 Patient left the ED. 3 Signatures: Dispatcher [employer] EDMS Aylin Wooten, PETRA-Akshat COOLP-Imelda Gupta ds1 Beatrice Avendano, RN RN ap3 Kayla Caldwell RN RN lh3
[2021-05-15] MEDS ORDERED: ONDANSETRON 4 MG (ODT) TAB ONE (19:31)
[2021-05-15 20:04] VITALS: TEMP 97.8
[2021-05-15 20:07] VITALS: BP 168/71; O2SAT 99
== END 2021-05-15 19:59 | disposition home or self-care (01) ==
LOC: ER 16:50
PROC: 0JQ10ZZ Repair Face Subcutaneous Tissue and Fascia, Open Approach (ICD-10-PCS; principal; 2021-05-15)
DX: S01.81XA Laceration without foreign body of other part of head, initial encounter (principal); S82.001A Unspecified fracture of right patella, initial encounter for closed fracture; S61.512A Laceration without foreign body of left wrist, initial encounter; W01.0XXA Fall on same level from slipping, tripping and stumbling without subsequent striking against object, initial encounter; Y93.01 Activity, walking, marching and hiking; I10 Essential (primary) hypertension; Z88.0 Allergy status to penicillin; Z88.1 Allergy status to other antibiotic agents; Z88.3 Allergy status to other anti-infective agents; Z88.5 Allergy status to narcotic agent; Z91.048 Other nonmedicinal substance allergy status
CPT/HCPCS: 70450; 70486; 71250; 72125; 76377

== ENCOUNTER 2022-01-08 12:21 | Emergency (ER) | payer OTHER ==
--- OUTSIDE RECORDS SUMMARY | 2022-01-08 12:25 | XMS REPORT | Continuity of Care Document ---
:1945 Author Organization [facility] t Address [address] [place] [address] 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 Allergies, Adverse Reactions, Alerts Allergy Allergy Status Severity Reaction(s) Onset Inactive Treating Comm ents Source Name Type Date Date Clinician Codeine Propensi Active Cough Univers ty to 01-30 ity of adverse 00:00: [place] reaction 00 Medical s Branch Morphine Propensi Active Nausea Univer s ty to and/or 01-30 ity of adverse Vomiting 00:00: [place] reaction 00 Medical s Branch Social History Social Habit Start Date Stop Date Quantity Comments Source Exposure to Not sure [facility] SARS-CoV-2 (event) Medica l Branch Tobacco use and 2017-01-30 2017-01-30 Never used [facility] exposure 00:00:00 00:00:00 Medical Branch Sex Ass[birth year] [facility] 00:00:00 00:00:00 Medical Branch Smoking Status Start Date Stop Date Source Never smoker [facility] Medications Ordered Filled Start Stop Current Ordering Indication Dosage Frequency Signature Comments Components Source Medication Medication Date Date Medication? Clinician (SIG) Name Name Freedom-3-DHA Yes Take by Un lili -EPA-Fish 5-05 mouth. ity of Oil (FISH 17:21: [place] OIL) 1,000 36 Medical mg (120 Branch mg-180 mg) Cap ERGOCALCIFE Yes Take by Un lili ROL, 5-05 mouth. ity of VITAMIN D2, 17:21: [place] (VITAMIN D 36 Medical ORAL) Branch albuterol Yes [id number] 2{puff} Inhale 2 Univers 90 5-05 Puffs ity of mcg/actuati 00:00: every 6 Rashad as on inhaler 00 (six) Medical hours as Branch needed for Wheezing or Shortness of Breath. olmesartan- Yes 1{tbl} Take 1 Un lili hydrochloro 4-24 tablet by ity of thiazide 00:00: mouth [place] 40-12.5 mg 00 daily. Medical per tablet Branch levothyroxi Yes TAKE 1 Univ ers ne 75 mcg 2-05 TABLET BY ity o f tablet 00:00: MOUTH ON [place] 00 AN EMPTY Medical STOMACH IN Branch THE AM fluvastatin Yes TAKE 1 Univ ers 20 mg 6-19 CAPSULE BY ity of capsule 00:00: MOUTH [place] 00 EVERY Medical EVENING Branch FOR CHOLESTERO L Procedures This patient has no known procedures. Encounters Start End Encounter Admission Attending Care Care Encounter Source Date/Time Date/Time Type Type Clinicians Facility Department ID 2021-06-15 2021-06-15 Laboratory Only, Jason Db Test [facility] [id number] [facility] 12:26:00 12:33:48 Only [facility] [id number] ity of [place] [id number] Rashad as JACLYN?BLEA [id number] [facility] [address] Branch MEDICAL OFFICE BUILDING Results This patient has no known results.
[2022-01-08 13:33] LABS: Absolute Lymphocytes (CBC) 0.9 K/uL (0.7-4.9); Hematocrit 42.9 % (36.0-45.0); Lymphocytes % 12.6 % (15.3-44.8); MPV 8.8 fL (7.6-11.3); RBC Red Blood Cell Count 4.55 M/uL (3.86-4.86)
[2022-01-08] MEDS ORDERED: NA CHLORIDE 0.9% 500 ML ONE (14:21)
[2022-01-08 14:35] LABS: Albumin 3.6 g/dL (3.4-5.0); Bilirubin Total 0.4 mg/dL (0.2-1.0); Potassium 3.2 mmol/L (3.5-5.1); Protein, Total 6.9 g/dL (6.4-8.2)
--- NOTE | 2022-01-08 15:13 | RAD REPORT ---
EXAM DESCRIPTION: CTAbdomen Pelvis W Contrast - 01/08/2022 2:53 pm CLINICAL HISTORY: Abdominal pain. Abdominal pain, acute, nonlocalized COMPARISON: Abdomen Pelvis W Contrast dated 01/18/2019 TECHNIQUE: Biphasic CT imaging of the abdomen and pelvis was performed with 100 ml non-ionic IV cont rast. All CT scans are performed using dose optimization technique as appropriate and may include automated exposure control or mA/KV adjustment according to patient size. FINDINGS: The lung bases are clear. The liver demonstrates no focal mass or biliary dilatation. Small 8 mm cystic lesion is seen in the r egion of the uncinate process. The spleen is normal in size. 13 mm nodule is present left adrenal gla nd. Right adrenal gland is normal. Small cysts are present in both kidneys. No hydronephrosis. No bowel obstruction, free air, free fluid or abscess. Moderate stool is present throughout the colon . Absent appendix. No evidence of significant lymphadenopathy. Moderate lumbar degenerative changes. IMPRESSION: No acute intra-abdominal or pelvic finding.
[2022-01-08] MEDS ORDERED: POTASSIUM 25 MEQ EFFERV TAB ONE (15:27)
[2022-01-08 15:39] LABS: Urine Blood Negative (Negative); Urine Glucose Negative (Negative); Urine Protein Trace (Negative); Urine Specific Gravity 1.015 (1.005-1.030)
[2022-01-08 16:45] LABS: Urine Bacteria <20 /HPF (<20); Urine RBC <5 /HPF (NONE SEEN)
--- NOTE | 2022-01-08 16:51 | EDPHYS ---
Physician Documentation [facility] Name: Kayleigh Pena Age: 76 yrs Sex: Female : 1945 Arrival Date: 01/08/2022 Time: 12:26 Bed 20 Private MD: Anderson Matute V ED Physician Marcus Georges HPI: 01/08 13:15 This 76 yrs old Female presents to ER via Wheelchair with complaints of Abdominal Pain, cp Nausea, Decreased Appetite. 13:15 The patient presents with abdominal pain. Associated signs and symptoms: Pertinent cp positives: anorexia, nausea, general weakness, Pertinent negatives: chest pain, constipation, diarrhea, fever, vomiting. 13:15 Onset: The symptoms/episode began/occurred 1 week(s) ago. cp Historical: - Allergies: 12:45 Amoxicillin; ap3 12:45 Morphine; ap3 12:45 Neosporin (fxr-cpj-xuigp); ap3 12:45 PENICILLINS; ap3 12:45 Tape; ap3 - Home Meds: 12:45 Synthroid 50 mcg Oral tab [Active]; amlodipine oral [Active]; rosuvastatin 20 mg oral ap3 tab [Active]; donepezil 10 mg oral tab [Active]; - PMHx: 12:45 Hypertension; ap3 - Immunization history:: Client reports receiving the 2nd dose of the Covid vaccine. - Social history:: Smoking status: Patient denies any tobacco usage or history of. ROS: 13:20 Constitutional: Negative for body aches, chills, fever. cp 13:20 Eyes: Negative for injury, pain, redness, and discharge. cp 13:20 ENT: Negative for drainage from ear(s), ear pain, sore throat, difficulty swallowing, difficulty handling secretions. 13:20 Cardiovascular: Negative for chest pain, palpitations. 13:20 Respiratory: Negative for cough, shortness of breath, wheezing. 13:20 Abdomen/GI: Positive for abdominal pain, nausea and vomiting, anorexia, Negative for diarrhea, constipation. 13:20 Back: Negative for pain at rest, pain with movement. 13:20 Skin: Negative for cellulitis, rash. 13:20 Neuro: Positive for general weakness, Negative for altered mental status, headache, syncope. 13:20 All other systems are negative. Exam: 13:25 Constitutional: The patient appears in no acute distress, alert, awake, cp non-diaphoretic, non-toxic, well developed, well nourished. 13:25 Head/Face: Normocephalic, atraumatic. cp 13:25 Eyes: Periorbital structures: appear normal, Conjunctiva: normal, no exudate, no injection, Sclera: no appreciated abnormality, Lids and lashes: appear normal, bilaterally. 13:25 ENT: External ear(s): are unremarkable, Nose: is normal, Mouth: Lips: moist, Oral mucosa: pink and intact, moist, Posterior pharynx: Airway: no evidence of obstruction, patent. 13:25 Neck: ROM/movement: is normal, is supple, without pain, no range of motions limitations. 13:25 Chest/axilla: Inspection: normal, Palpation: is normal, no crepitus, no tenderness. 13:25 Cardiovascular: Rate: normal, Rhythm: regular, Edema: is not appreciated, JVD: is not appreciated. 13:25 Respiratory: the patient does not display signs of respiratory distress, Respirations: normal, no use of accessory muscles, no retractions, labored breathing, is not present, Breath sounds: are clear throughout, no decreased breath sounds, no stridor, no wheezing. 13:25 Abdomen/GI: Inspection: abdomen appears normal, Bowel sounds: active, all quadrants, Palpation: abdomen is soft and non-tender, in all quadrants. 13:25 Back: pain, is absent, ROM is normal. 13:25 Skin: cellulitis, is not appreciated, no rash present. 13:25 Neuro: Orientation: to person, place \T\ time. Mentation: is normal, Cerebellar function: is grossly normal, Motor: moves all fours, strength is normal, Sensation: is normal. Vital Signs: 12:43 BP 136 / 78; Pulse 67; Resp 17; Temp 98.1; Pulse Ox 96% ; Weight 68.04 kg; Height 5 ft. ap3 8 in. (172.72 cm); 13:45 BP 143 / 68; Pulse 54; Resp 18; Pulse Ox 97% on R/A; ww 14:15 BP 129 / 56; Pulse 52; Resp 18; Pulse Ox 96% ; ww 12:43 Body Mass Index 22.81 (68.04 kg, 172.72 cm) ap3 MDM: 13:05 Patient medically screened. cp 16:50 Data reviewed: vital signs, nurses notes, lab test result(s), radiologic studies, CT cp scan. 16:50 Differential diagnosis: diverticulitis, non-specific abd pain, Pyelonephritis, cp Ureterolithiasis, urinary tract infection, colitis, depression. Counseling: I had a detailed discussion with the patient and/or guardian regarding: the historical points, exam findings, and any diagnostic results supporting the discharge/admit diagnosis, lab results, radiology results, to return to the emergency department if symptoms worsen or persist or if there are any questions or concerns that arise at home. Response to treatment: the patient's symptoms have markedly improved after treatment, and as a result, I will discharge patient. 16:50 ED course: VSS. Patient reports she is feeling better and requesting discharge to home. cp Patient tolerating po fluids. Had long discussion with patient addressing concerns about depression and need for f/u with primary care physician. 01/08 13:08 Order name: CBC with Diff; Complete Time: 13:45 01/08 15:16 Interpretation: Normal except: GASTON% 78.2; LYM% 12.6. 01/08 13:08 Order name: CMP; Complete Time: 15:15 01/08 15:15 Interpretation: Normal except: NA 133; K 3.2; CL 95; GFR 60. 01/08 13:08 Order name: Lipase; Complete Time: 15:15 01/08 13:46 Order name: Urine Microscopic Only 01/08 13:50 Order name: CT Abd/Pelvis - IV Contrast Only; Complete Time: 15:15 cp 01/08 15:39 Order name: Urine Dipstick-Ancillary; Complete Time: 15:54 EDMS 01/08 15:54 Interpretation: Normal except: UKET Trace; UPROT Trace. 01/08 13:08 Order name: IV Saline Lock; Complete Time: 14:03 iw 01/08 13:08 Order name: Labs collected and sent; Complete Time: 14:03 iw 01/08 13:34 Order name: Labs - recollect needed: recollect c7; Complete Time: 14:13 bd 01/08 13:46 Order name: Urine Dipstick-Ancillary (obtain specimen); Complete Time: 15:41 cp Administered Medications: 14:19 Drug: NS 0.9% 500 ml Route: IV; Rate: calculated rate; Site: right antecubital; ww 15:32 Drug: Potassium Effervescent Tablet 50 mEq Route: PO; ww Disposition Summary: 01/08/22 16:50 Discharge Ordered Location: Home cp Problem: new cp Symptoms: have improved cp Condition: Stable cp Diagnosis - Nausea cp - Abdominal pain, unspecified cp Followup: cp - With: Gareth Altamirano MD - When: 2 - 3 days - Reason: nausea, abdominal pain Discharge Instructions: - Discharge Summary Sheet cp - Abdominal Pain, Adult cp - Nausea, Adult cp Forms: - Medication Reconciliation Form cp - Thank You Letter cp - Antibiotic Education cp - Prescription Opioid Use cp Prescriptions: - Zofran 4 mg Oral Tablet - take 1 tablet by ORAL route every 12 hours As needed; 20 tablet; Refills: 0, cp Product Selection Permitted Addendum: 01/09/2022 23:26 Co-signature as Attending Physician, Marcus Georges MD. r n Signatures: Dispatcher [employer] Ela Olsen Irene, RN Marcus Mendieta MD MD rn Quang Monson, SANTI PA cp Beatrice Avendano RN RN ap3 Sophia Lundberg RN RN ww Corrections: (The following items were deleted from the chart) 01/08 15:16 15:16 Normal except. cp cp 01/09 16:45 01/08 13:15 Associated signs and symptoms: Pertinent positives: anorexia, nausea, cp Pertinent negatives: constipation, diarrhea, fever, vomiting, cp
--- NOTE | 2022-01-08 16:51 | ER ---
Nurse's Notes [facility] Name: Kayleigh Pena Age: 76 yrs Sex: Female : 1945 Arrival Date: 01/08/2022 Time: 12:26 Bed 20 Private MD: Anderson Matute V Diagnosis: Nausea;Abdominal pain, unspecified Presentation: 01/08 12:43 Chief complaint: Spouse and/or significant other states: that the patient hasn't had ap3 much of an appetite since , and has since began to feel weak, nauseated, and as though she is getting dehydrated. Patient states she just "doesn't feel good". Patient is able to report abdominal pain, nausea and vomiting. Coronavirus screen: At this time, the client does not indicate any symptoms associated with coronavirus-19. Ebola Screen: No symptoms or risks identified at this time. Initial Sepsis Screen: Does the patient meet any 2 criteria? No. Patient's initial sepsis screen is negative. Does the patient have a suspected source of infection? No. Patient's initial sepsis screen is negative. Risk Assessment: Do you want to hurt yourself or someone else? Patient reports no desire to harm self or others. Onset of symptoms was January 01, 2022. 12:43 Method Of Arrival: Wheelchair ap3 12:43 Acuity: ROYA 3 ap3 Triage Assessment: 12:47 General: Appears uncomfortable, Behavior is quiet. Pain: Complains of pain in abdomen ap3 Also complains of nausea, sleeplessness. Neuro: Level of Consciousness is awake, alert, obeys commands, Oriented to person, place, time, situation. Cardiovascular: Patient's skin is warm and dry. Respiratory: Airway is patent Respiratory effort is even, unlabored. GI: Reports lower abdominal pain, upper abdominal pain, nausea, vomiting, Patient currently denies diarrhea. Historical: - Allergies: 12:45 Amoxicillin; ap3 12:45 Morphine; ap3 12:45 Neosporin ([id number]); ap3 12:45 PENICILLINS; ap3 12:45 Tape; ap3 - Home Meds: 12:45 Synthroid 50 mcg Oral tab [Active]; amlodipine oral [Active]; rosuvastatin 20 mg oral ap3 tab [Active]; donepezil 10 mg oral tab [Active]; - PMHx: 12:45 Hypertension; ap3 - Immunization history:: Client reports receiving the 2nd dose of the Covid vaccine. - Social history:: Smoking status: Patient denies any tobacco usage or history of. Screenin:47 Abuse screen: Denies threats or abuse. Nutritional screening: Has had N/V for 3 or more ap3 days. Tuberculosis screening: No symptoms or risk factors identified. Assessment: 13:36 General: Appears in no apparent distress. comfortable, Behavior is calm, cooperative. ww Pain: Denies pain. Neuro: Level of Consciousness is awake, alert, obeys commands, Oriented to person, place, time, situation, Moves all extremities. Speech is normal, Reports weakness generalized. Cardiovascular: Capillary refill < 3 seconds Patient's skin is warm and dry. Chest pain is denied. Respiratory: Airway is patent Respiratory effort is even, unlabored, Respiratory pattern is regular, symmetrical. GI: No signs and/or symptoms were reported involving the gastrointestinal system. Abdomen is non-distended, Abd is soft and non tender X 4 quads. : No signs and/or symptoms were reported regarding the genitourinary system. 14:38 Reassessment: Patient appears in no apparent distress at this time. No changes from ww previously documented assessment. Patient and/or family updated on plan of care and expected duration. Pain level reassessed. Patient is alert, oriented x 3, equal unlabored respirations, skin warm/dry/pink. 15:44 Reassessment: Patient appears in no apparent distress at this time. No changes from ww previously documented assessment. Patient and/or family updated on plan of care and expected duration. Pain level reassessed. Patient is alert, oriented x 3, equal unlabored respirations, skin warm/dry/pink. 16:45 Reassessment: Patient appears in no apparent distress at this time. No changes from ww previously documented assessment. Patient and/or family updated on plan of care and expected duration. Pain level reassessed. Patient is alert, oriented x 3, equal unlabored respirations, skin warm/dry/pink. Vital Signs: 12:43 BP 136 / 78; Pulse 67; Resp 17; Temp 98.1; Pulse Ox 96% ; Weight 68.04 kg; Height 5 ft. ap3 8 in. (172.72 cm); 13:45 BP 143 / 68; Pulse 54; Resp 18; Pulse Ox 97% on R/A; ww 14:15 BP 129 / 56; Pulse 52; Resp 18; Pulse Ox 96% ; ww 12:43 Body Mass Index 22.81 (68.04 kg, 172.72 cm) ap3 ED Course: 12:26 Patient arrived in ED. mr 12:26 Eder Wheeler MD is Private Physician. mr 12:27 Anderson Matute MD is Private Physician. mr 12:33 Quang Monson PA is PHCP. cp 12:33 Marcus Georges MD is Attending Physician. cp 12:45 Triage completed. ap3 12:47 Arm band placed on left wrist. ap3 13:02 Sophia Lundberg, RN is Primary Nurse. ww 14:04 CMP Sent. [facility] 14:04 Lipase Sent. [facility] 14:55 CT Abd/Pelvis - IV Contrast Only In Process Unspecified. EDMS 16:50 Gareth Altamirano MD is Referral Physician. cp 17:19 No provider procedures requiring assistance completed. IV discontinued, intact, ww bleeding controlled, No redness/swelling at site. Pressure dressing applied. Administered Medications: 14:19 Drug: NS 0.9% 500 ml Route: IV; Rate: calculated rate; Site: right antecubital; ww 15:32 Drug: Potassium Effervescent Tablet 50 mEq Route: PO; ww Outcome: 16:50 Discharge ordered by MD. cp 17:19 Discharged to home with family. ww 17:19 Condition: stable 17:19 Discharge instructions given to patient, family, Instructed on discharge instructions, follow up and referral plans. medication usage, safety practices, Demonstrated understanding of instructions, follow-up care, medications, Prescriptions given X 1. 17:19 Patient left the ED. ww Signatures: Dispatcher [employer] EDWI Daiana Black mr Quang Monson PA PA cp Martinez, Maria [facility] Beatrice Avendano RN RN [facility] Sophia Lundberg, PATRICIA RN
[2022-01-08 18:30] VITALS: TEMP 98.1; O2SAT 96
[2022-01-08 18:47] VITALS: BP 129/56
== END 2022-01-08 17:19 | disposition home or self-care (01) ==
LOC: ER 12:21
DX: R10.9 Unspecified abdominal pain (principal); R11.0 Nausea; R53.1 Weakness; I10 Essential (primary) hypertension; Z88.0 Allergy status to penicillin; Z88.1 Allergy status to other antibiotic agents; Z88.3 Allergy status to other anti-infective agents; Z88.5 Allergy status to narcotic agent; Z91.048 Other nonmedicinal substance allergy status
CPT/HCPCS: 85025; 36415; 83690; 80053; 74177; Q9967; J7040; 81003; 81015

== ENCOUNTER 2022-04-01 09:25 | Emergency (ER) | payer OTHER ==
--- OUTSIDE RECORDS SUMMARY | 2022-04-01 09:29 | XMS REPORT | Continuity of Care Document ---
:1945 Author Organization [facility] t Address [address] [place] [address] Care Team Providers Name Role Phone Pcp, Patient Does Not Have A Primary Care Physician [id number] Christiano Mcdaniels Attending Clinician Only, Ang Db Test Attending Clinician Unavailable Beronica Henderson Attending Clinician Karel Emanuel Attending Clinician Karel Emanuel Admitting Clinician Payers Payer Name Policy Type Policy Number Effective Date Expiration Date S ource Problems Condition Condition Condition Status Onset Resolution Last Treating Co mments Source Name Details Category Date Date Treatment Clinician Date 4/723. 723.4/723 Diagnosis Active 2014-02-03 Memoria 721.0-CE .721.0-C 01-28 07:27:00 l RVICAL ERVICAL 00:00: Kenneth FORMAINOTO FORMAINOTO 00 MY MY Active 01/28/2014 [facility] 723.4/723. 723.4/723 Diagnosis Active 2014-02-01 Memoria 721.0 .721.0 01-28 15:42:00 l Active 00:00: [place] 01/28/2014 00 [facility] Malignant Malignant Problem Resolve 2021-12-01 Memoria neoplasm neoplasm d 04:00:58 l of skin of skin Kenneth (disorder) (disorder) Resolved Problem 12/01/2021 back x 2 [facility] Amnesia Amnesia Problem Active 2021-12-01 Me moria (finding) (finding) 04:00:58 l Active [place] Problem 12/01/2021 [facility] Hypertensi Hypertens Problem Active 2021-12-01 Memoria ve lia 04:00:58 l disorder, disorder, Herm edith systemic systemic arterial arterial (disorder) (disorder) Active Problem 12/01/2021 [facility] Hydrocepha Hydroceph Problem Active 2021-12-01 Memoria mayra alus 04:00:58 l (disorder) (disorder) He rmann Active Problem 12/01/2021 [facility] Hypothyroi Hypothyro Problem Active 2021-12-01 Memoria dism idism 04:00:58 l (disorder) (disorder) He rmann Active Problem 12/01/2021 [facility] Impaired Impaired Problem Active 2021-12-01 Memoria cognition cognition 04:00:58 l (finding) (finding) Herm edith Active Problem 12/01/2021 [facility] Compressio Compressi Problem Active 2021-12-01 Memoria n injury on injury 04:00:58 l of nerve of nerve Mike n (disorder) (disorder) Active Problem 12/01/2021 [facility] Recurrent Recurrent Problem Active 2021-12-01 Memoria falls falls 04:00:58 l (finding) (finding) Herm edith Active Problem 12/01/2021 [facility] Allergies, Adverse Reactions, Alerts Allergy Allergy Status Severity Reaction(s) Onset Inactive Treating Comm ents Source Name Type Date Date Clinician Codeine Propensi Active Cough 2017- [facility] ty to 01-30 ity of adverse 00:00: [place] reaction 00 Medical s Branch Morphine Propensi Active Nausea 2016-0 Univer s ty to and/or 01-30 ity of adverse Vomiting 00:00: [place] reaction 00 Medical s Branch morphine morphine Active Memori a l [place] Adhesive Adhesive Active Memori a Tape Tape l [place] Social History Social Habit Start Date Stop Date Quantity Comments Source Exposure to Not sure [facility] SARS-CoV-2 (event) Medica l Branch Social History 2021-07-18 2021-07-18 Elizabeth churchill 17:28:33 17:28:33 Tobacco use and 2017-01-30 2017-01-[address] [facility] exposure 00:00:00 00:00:00 Medical Branch Sex Assigned At [address] [facility] 00:00:00 00:00:00 Medical Branch Smoking Status Start Date Stop Date Source Never smoker [facility] Branch Social History 2014-01-31 18:14:41 2014-01-31 18:14:41 [facility] Medications Ordered Filled Start Stop Current Ordering Indication Dosage Frequency Signature Comments Components Source Medication Medication Date Date Medication? 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 ity of Oil (FISH 17:21: [place] OIL) 1,000 36 Medical mg (120 Branch mg-180 mg) Cap ERGOCALCIFE Yes Take by Uni vers ROL, 5-05 mouth. ity of VITAMIN D2, 17:21: [place] (VITAMIN D 36 Medical ORAL) Branch albuterol Yes [id number] 2{puff} Inhale 2 Univers 90 5-05 Puffs [...] EVERY Medical EVENING Branch FOR CHOLESTERO L tramadol Yes 50 mg = 1 [place] lori hydrochlori 02-02 tab, PO, l de 50 MG 18:00: Q4H, Pain, Her figueroa Oral Tablet 00 # 60 tab, 0 Refill(s) Ciprofloxac Yes 500 mg = 1 Memoria in 500 MG 02-02 tab, PO, l Oral Tablet 18:00: Q12H, # 14 [place] [Cipro] 00 tab, 0 Refill(s) Amlodipine No 1 tab, Memor ia 5 MG / 02-02 Route: PO, l Hydrochloro 14:00: Drug Form: Kenneth thiazide 00 TAB, 12.5 MG / Dosing Olmesartan Weight medoxomil 69.545, 40 MG Oral kg, Daily, Tablet Start [Tribenzor date: ] 02/02/14 9:00:00, Duration: 30 day, Stop date: 03/03/14 9:00:00 Microzide No Notes: Memori a 02-02 (Same as: l 14:00: Microzide) [place] 00 With food. Norvasc No Notes: Memoria 02-02 (Same as: l 14:00: Norvasc) [place] 00 Benicar No 40 mg, 2 Memori a 02-02 tab, l 14:00: Route: PO, [place] 00 Drug form: TAB, Daily, Start date: 02/02/14 9:00:00, Duration: 30 day, Stop date: 03/03/14 9:00:00 Thyroxine No Notes: Memori a - Take 1 l 11:30: hour [place] 00 before or 2 hours after meal; Enteral feeds may interefere with the absorption of this medication . (Same as:Levothr oid, Synthroid) 10 ML No 1 gm, 100 Memoria Cefazolin 02-02 mL, Route: l 100 MG/ML 01:00: IVPB, Drug He rmann Prefilled 00 form: INJ, Syringe [id number], Dosing Weight 69.545, kg, Start date: 02/01/14 20:00:00, Duration: 1 doses or times, Stop date: 02/01/14 20:00:00 10 ML No 1 gm, Memoria Cefazolin 02-01 Route: l 100 MG/ML 21:00: IVPB, Drug He rmann Prefilled 00 form: INJ, Syringe Q8H, Dosing Weight 69.545, kg, Start date: 02/01/14 16:00:00, Duration: 1 doses or times, Stop date: 02/01/14 16:00:00 Promethazin No 6.25 mg, Me moria e 02-01 Route: l 19:19: IVPB, ONCE, Dosing Weight 69.545, kg, PRN Nausea & Vomiting, Start date: 02/01/14 14:19:00 Ondansetron No 4 mg, Memor ia 02-01 Route: l 19:19: IVP, ONCE, [place] 00 Dosing Weight 69.545, kg, PRN Nausea & Vomiting, Start date: 02/01/14 14:19:00 Naloxone No 0.04 mg, Memor ia 02-01 Route: l 19:19: IVP, Kenneth 00 Q2MIN, Dosing Weight 69.545, kg, PRN Narcotic Reversal, Start date: 02/01/14 14:19:00, Duration: 8 doses or times, Stop date: Limited # of times Glycopyrrol 2013-0 No 0.2 mg, Mem oria ate 02-01 Route: l 19:19: IVP, Kenneth 00 Q5Min, Dosing Weight 69.545, kg, PRN Bradycardi a, Start date: 02/01/14 14:19:00, Duration: 3 doses or times, Stop date: Limited # of times Diphenhydra 2013-0 No 12.5 mg, Me moria mine 02-01 Route: l 19:19: IVP, Drug Kenneth 00 form: INJ, Q6H, Dosing Weight 69.545, kg, PRN Itching, Start date: 02/01/14 14:19:00, Duration: 30 day, Stop date: 03/03/14 14:18:00 Meperidine 2013-0 No 12.5 mg, Mem oria 02-01 Route: l 19:19: IVP, [place] 00 Q30Min, Dosing Weight 69.545, kg, PRN Other -See Comment, For shivering, Start date: 02/01/14 14:19:00, Duration: 2 doses or times, Stop date: Limited # of times Flumazenil 2013-0 No 0.2 mg, [place] lori 02-01 Route: l 19:19: IVP, PRN, Dosing Weight 69.545, kg, PRN Benzodiaze pine Reversal, Initial dose, Start date: 02/01/14 14:19:00, Duration: 30 day, Stop date: 03/03/14 14:18:00 Ketorolac 2013-0 No 30 mg, Memori a 02-01 Route: l 19:19: IVP, ONCE, [place] 00 Dosing Weight 69.545, kg, Start date: 02/01/14 14:19:00, Duration: 1 doses or times, Stop date: 02/01/14 14:19:00 Fentanyl 2013-0 No 25 Memoria - microgram, l 19:19: Route: [place] 00 IVP, Q5Min, Dosing Weight 69.545, kg, PRN Pain Score 4-6, Start date: 02/01/14 14:19:00, Duration: 4 doses or times, Stop date: Limited # of times Hydromorpho No 0.5 mg, Mem oria ne 02-01 Route: l 19:19: IVP, [place] 00 Q5Min, Dosing Weight 69.545, kg, PRN Pain Score 7-10, Start date: 02/01/14 14:19:00, Duration: 4 doses or times, Stop date: Limited # of times Oxycodone No 10 mg, Memori a 02-01 Route: PO, l 19:19: Drug form: [place] 00 TAB, Q4H, Dosing Weight 69.545, kg, PRN Pain Score 7-10, Start date: 02/01/14 14:19:00, Duration: 30 day, Stop date: 03/03/14 14:18:00 Metoprolol No 1 mg, Memori a 02-01 Route: l 19:19: IVP, [place] 00 Q5Min, Dosing Weight 69.545, kg, PRN Other -See Comment, Start date: 02/01/14 14:19:00, Duration: 5 doses or times, Stop date: Limited # of times Hydralazine No 10 mg, [place] l[place] 02-01 Route: l 19:19: IVP, [place] 00 Q20Min, Dosing Weight 69.545, kg, PRN Elevated BP, Start date: 02/01/14 14:19:00, Duration: 2 doses or times, Stop date: Limited # of times Robaxin No Notes: Memoria 02-01 (Same l 18:00: as:Robaxin Kenneth ) Dexamethaso No Notes: [place] lori ne 02-01 Concentrat l 17:00: ion: [place] 00 4mg/ml Acetaminoph No Notes: [place] l[place] en 325 MG / 02-01 Same as l Hydrocodone 16:02: [place] Linn nn Bitartrate 00 325-7.5mg 7.5 MG Oral Do not Tablet exceed [[place] 4gm/day of 7.5/325] acetaminop hen. Sodium 2014-0 No 1,000 mL, Memori a Chloride 02-01 Rate: 50 l 0.154 16:01: ml/hr, Kenneth MEQ/ML 00 Infuse Injectable over: 20 Solution hr, Route: IV, Dosing Weight 69.545 kg, Total Volume: 1,000, Start date: 02/01/14 11:01:00, Duration: 30 day, Stop date: 03/03/14 11:00:00 Ancef 2013-0 No 1 gm, Memoria 02-01 Route: l 14:35: IVPB, Kenneth 00 ONCE, Dosing Weight 69.545, kg, Start date: 02/01/14 9:35:00, Stop date: 02/01/14 9:35:00 Calcium 2013-0 No 1,000 mL, Memor ia Chloride 02-01 Rate: 25 l 0.0014 14:24: ml/hr, Kenneth MEQ/ML / 00 Infuse Potassium over: 40 Chloride hr, Route: 0.004 IV, Dosing MEQ/ML / Weight Sodium 69.545 kg, Chloride Total 0.103 Volume: MEQ/ML / 1,000, Sodium Start Lactate date: 0.028 02/01/14 MEQ/ML 9:24:00, Injectable Duration: Solution 30 day, Stop date: 03/03/14 9:23:00 levothyroxi Yes 100 Memori a ne 100 mcg 6-30 microgram l (0.1 mg) 18:03: = 1 tab, Linn nn oral tablet 00 PO, Daily, # 30 tab, 0 Refill(s) Amlodipine Yes PO, Daily, M emoria 5 MG / 6-30 0 l Hydrochloro 18:02: Refill(s) H ermann thiazide 00 12.5 MG / Olmesartan medoxomil 40 MG Oral Tablet [Tribenzor 40/5/12.5] Vital Signs Vital Name Observation Time Observation Value Comments Source Systolic (mm Hg) 2021-11-28 15:04:00 [place] mena Iyerann Diastolic (mm Hg) 2021-11-28 15:04:00 Manpreet Cooper Heart Rate 2021-11-28 15:04:[address] [facility] Kenneth Respitory Rate 2021-11-28 15:04:00 Memori al [place] Height 2021-11-28 15:04:00 165.1 cm Memorial Kenneth Weight 2021-11-28 15:04:00 [facility] Kenneth BMI Calculated 2021-11-28 15:04:00 Memori al [place] Respitory Rate 2021-08-30 15:59:00 Memori al [place] Height 2021-08-30 15:59:00 165.1 cm Memorial Kenneth Weight 2021-08-30 15:59:00 [facility] Kenneth BMI Calculated 2021-08-30 15:59:00 Memori al [place] Systolic (mm Hg) 2021-08-30 15:59:00 River rial Kenneth Diastolic (mm Hg) 2021-08-30 15:59:00 Mem orial Kenneth Heart Rate 2021-08-30 15:59:00 [facility] [place] Systolic (mm Hg) 2021-07-18 17:26:00 River rial Kenneth Diastolic (mm Hg) 2021-07-18 17:26:00 Mem orial [place] Heart Rate 2021-07-18 17:26:00 [facility] Kenneth Respitory Rate 2021-07-18 17:26:00 Memori al Kenneth Height 2021-07-18 17:26:00 165.1 cm [facility] [place] Weight 2021-07-18 17:26:00 [facility] Kenneth BMI Calculated 2021-07-18 17:26:00 Memori al [place] Diastolic (mm Hg) 2014-02-02 13:00:00 Mem orial [place] Systolic (mm Hg) 2014-02-02 13:00:00 River rial Kenneth Temperature Oral (F) 2014-02-02 13:00:00 97.7 F [facility] Kenneth Heart Rate 2014-02-02 13:00:00 [facility] [place] Respitory Rate 2014-02-02 13:00:00 Memori al [place] Respitory Rate 2014-02-02 05:05:00 Memori al [place] Temperature Oral (F) 2014-02-02 05:05:00 98.3 F [facility] Kenneth Heart Rate 2014-02-02 05:05:00 [facility] [place] Systolic (mm Hg) 2014-02-02 05:05:00 River rial Kenneth Diastolic (mm Hg) 2014-02-02 05:05:00 Mem orial [place] Height 2014-02-02 01:36:00 [facility] 2014-02-02 01:36:[address] [facility] [place] BMI Calculated 2014-02-02 01:36:00 Memsharla al [place] Diastolic (mm Hg) 2014-02-02 01:28:00 Mem keith [place] Systolic (mm Hg) 2014-02-02 01:28:00 River rial Kenneth Heart Rate 2014-02-02 01:28:00 [facility] Oral (F) 2014-02-02 01:28:[address] [facility] [place] Respitory Rate 2014-02-02 01:28:00 Memsharla al [place] BMI Calculated 2014-01-31 17:57:00 Emily al [place] Weight 2014-01-31 17:57:[address] [facility] [place] Height 2014-01-31 17:57:00 170.18 cm [facility] Procedures Procedure Date / Time Performed Performing Clinician Heather [facility] section [facility] n Tonsillectomy [facility] Encounters Start End Encounter Admission Attending Care Care Encounter Source Date/Time Date/Time Type Type Clinicians Facility Department ID 2022-05-30 2022-05-30 Outpatient MHIE MHIE [id number] Memoria 09:45:00 09:45:00 04 haroon [place] 2021-11-28 2021-11-29 Outpatient nullFlavo MNA [id number] Memoria 15:00:00 04:59:59 r Neurology [place] 2021-11-28 2021-11-28 Outpatient PRAMOD McdanielsSCHGOLDIE [id number] 10:00:00 23:59:59 Christiano 03 Gareth 2021-11-28 2021-11-28 Outpatient MHIE MHIE [id number] Memoria 10:00:00 10:00:00 03 haroon [place] 2021-08-30 2021-08-31 Outpatient nullFlavo MNA [id number] Memoria 15:45:00 05:59:59 r Neurology 02 haroon Iyerann 2021-08-30 2021-08-30 Outpatient PRAMOD McdanielsSCHGOLDIE [id number] 09:45:00 23:59:59 Christiano 02 Gareth 2021-08-302021-08-30 Outpatient MHIE MHIE [id number] Memoria 09:45:00 09:45:00 02 l [place] 2021-08-29 2021-08-29 Ambulatory nullFlavo MNA [id number] Memoria 16:15:00 16:15:00 Pre-Reg r Neurology 01 l Donald [place] 2021-08-29 2021-08-29 Outpatient MHIE MHIE [id number] Memoria 10:15:00 10:15:00 01 haroon [place] 2021-08-29 2021-08-29 Outpatient Enedelia MISCHER MHMISCHER [id number] 10:15:00 10:15:00 Christiano 01 Gareth 2021-07-18 2021-07-19 Outpatient nullFlavo MNA [id number] Memoria 17:30:00 05:59:59 r Neurology 00 l [place] 2021-07-18 2021-07-18 Outpatient Enedelia MHMISCHER MHMISCHER [id number] 11:30:00 23:59:59 Christiano 00 [place] 2021-07-18 2021-07-18 Outpatient MHIE MHIE [id number] Memoria 11:30:00 11:30:00 00 haroon [place] 2021-06-15 2021-06-15 Laboratory Only, Ang Db Test [facility] 1.2.8 40.114 [id number] [facility] 12:26:00 12:33:48 Only [facility] [id number] [facility] [id number] Rashad as JACLYN?BLEA [id number] [address] MEDICAL OFFICE BUILDING 2014-02-01 2014-02-02 OBS nullFlavo Memorial [id number] Memoria 20:26:00 19:15:00 Observatio r [place] 00 l n Patient [facility] 2014-02-01 2014-02-02 Outpatient Jenae [id number] 15:26:00 14:15:00 Karel [id number] Basilio [id number] 01 Results Test Description Test Time Test Comments Results Result Comments Source ANEMIA STUDY 2021-08-30 17:01:00 Test Item Value Reference Range Interpretation Comme nts Vitamin B12 Lvl (test code = Vitamin B12 Lvl) 697 119-0995 [id number] 17:01:00 Test Item Value Reference Range Interpretation Comments Sed Rate (test code = Sed Rate) 14 [id number] 18:30:00 Test Item Value Reference Range Interpretation Comments Chloride Lvl (test code = Chloride Lvl) 104 95-109 [facility] HospitalUrgsbhlQUMRKQJAHNQD7079-77-38 18:30:00 Test Item Value Reference Range Interpretation Comments CO2 (test code = CO2) 31 24-32 [facility] HospitalVpqqtolTZMJWLJENMBG6806-31-71 18:30:00 Test Item Value Reference Range Interpretation Comments AGAP (test code = AGAP) 9.5 10.0-20.0 [facility] HospitalZizdisoTCGKYYLYQDKI1991-84-03 18:30:00 Test Item Value Reference Range Interpretation Comments Potassium Lvl (test code = Potassium 4.5 3.5-5.1 Lvl) [facility] HospitalOavrkugZNFAQNYGCBSF2091-46-72 18:30:00 Test Item Value Reference Range Interpretation Comments Sodium Lvl (test code = Sodium Lvl) 140 135-145 [facility] HospitalEbinephZCHFLLVVRU6254-85-34 18:30:00 Test Item Value Reference Range Interpretation Comments INR (test code = INR) 0.96 0.85-1.17 [facility] HospitalFeuzlfzJMTJUPTEVX0813-00-05 18:30:00 Test Item Value Reference Range Interpretation Comments PTT (test code = PTT) 28.5 s 22.9-35.8 [facility] HospitalGveunapAZPJKZQIWY2694-09-47 18:30:00 Test Item Value Reference Range Interpretation Comments PT (test code = PT) 12.7 s 12.0-14.7 [place] [facility] HospitalApplnrsDFNSLAKLBN7572-03-06 18:30:00 Test Item Value Reference Range Interpretation Comments Platelet (test code = Platelet) 242 133-450 [facility] HospitalDajnjjnMNVEPMPIXB4328-42-34 18:30:00 Test Item Value Reference Range Interpretation Comments RDW (test code = RDW) 13.6 11.5-14.5 [facility] HospitalKuxlapmPQFDUVRHNH4990-08-01 18:30:00 Test Item Value Reference Range Interpretation Comments MPV (test code = MPV) 8.3 7.4-10.4 [facility] HospitalUhiaqgjMSJRJDQAQQ5726-53-33 18:30:00 Test Item Value Reference Range Interpretation Comments Hgb (test code = Hgb) 11.3 12.0-16.0 [facility] HospitalDwntsxbYNJLCPPCAZ3926-23-00 18:30:00 Test Item Value Reference Range Interpretation Comments RBC X 10x6 (test code = RBC X 10x6) 3.76 4.20-5.40 [facility] HospitalRqobaerWOGZWGYBQC1431-58-63 18:30:00 Test Item Value Reference Range Interpretation Comments MCH (test code = MCH) 30.1 pg 27.0-31.0 [facility] HospitalSwwrpkfNYJGOMXJMZ9664-58-70 18:30:00 Test Item Value Reference Range Interpretation Comments MCV (test code = MCV) 91.2 81.0-99.0 [facility] HospitalNdxiyagUOXXTMNVBV9839-46-07 18:30:00 Test Item Value Reference Range Interpretation Comments Hct (test code = Hct) 34.3 36.0-48.0 [facility] HospitalLatzueqAZSQIFCRTC5355-18-08 18:30:00 Test Item Value Reference Range Interpretation Comments MCHC (test code = MCHC) 33.1 32.0-36.0 [facility] HospitalDmwpelaBILKSMNISB4783-73-65 18:30:00 Test Item Value Reference Range Interpretation Comments WBC X 10x3 (test code = WBC X 10x3) 5.3 3.7-10.4 [facility] HospitalJuxcftgWCNFAZRQJP6254-69-39 18:30:00 Test Item Value Reference Range Interpretation Comments Basophils (test code = 1.1 See_Comment [Aut omated message] The Basophils) system which ge nerated this result tra nsmitted reference range : <=1.0. The reference r ajit was not used to int erpret this result as normal/abnormal . [facility] HospitalTnwzbflVNQECRGPOW3082-70-01 18:30:00 Test Item Value Reference Range Interpretation Comments Lymphocytes # (test code = Lymphocytes 1.4 1.0-5.5 #) [facility] H[id number] 18:30:00 Test Item Value Reference Range Interpretation Comments Segs-Bands # (test code = Segs-Bands #) 3.3 1.5-8.1 [facility] Hospit[id number] 18:30:00 Test Item Value Reference Range Interpretation Comments Monocytes # (test code 0.4 See_Comment [Aut omated message] The = Monocytes #) system which generated this result tra nsmitted reference range : <=0.8. The reference r ajit was not used to int erpret this result as normal/abnormal . [facility] HospitalBznycfgHOGNWUDCJD9822-17-00 18:30:00 Test Item Value Reference Range Interpretation Comments Basophils # (test code 0.1 See_Comment [Aut omated message] The = Basophils #) system which generated this result tra nsmitted reference range : <=0.2. The reference r ajit was not used to int erpret this result as normal/abnormal . [facility] HospitalUoynsegIVSAXTBCKV3925-54-62 18:30:00 Test Item Value Reference Range Interpretation Comments Eosinophils # (test code 0.2 See_Comment [A utomated message] The = Eosinophils #) system whic h generated this result tra nsmitted reference range : <=0.5. The reference r ajit was not used to int erpret this result as normal/abnormal . [facility] HospitalHbcvfezUIWIARXEXN0079-10-67 18:30:00 Test Item Value Reference Range Interpretation Comments Segs (test code = Segs) 62.4 45.0-75.0 [facility] HospitalW[id number] 18:30:00 Test Item Value Reference Range Interpretation Comments Monocytes (test code = Monocytes) 7.6 2.0-12.0 [facility] HospitalFcxmzgoBKYKTXKHHK6609-65-18 18:30:00 Test Item Value Reference Range Interpretation Comments Lymphocytes (test code = Lymphocytes) 26.0 20.0-40.0 [facility] Hospit[id number] 18:30:00 Test Item Value Reference Range Interpretation Comments Eosinophils (test code = 2.9 See_Comment [A utomated message] The Eosinophils) system which ge nerated this result tra nsmitted reference range : <=4.0. The reference r ajit was not used to int erpret this result as normal/abnormal . [facility]
[2022-04-01 09:52] LABS: Absolute Lymphocytes (CBC) 0.5 K/uL (0.7-4.9); Hematocrit 38.4 % (36.0-45.0); MCV 97.4 fL (80-100); MPV 7.7 fL (7.6-11.3); RBC Red Blood Cell Count 3.95 M/uL (3.86-4.86)
--- NOTE | 2022-04-01 09:58 | RAD REPORT ---
EXAM DESCRIPTION: CT - CTHCSPWOC - 04/01/2022 9:47 am CLINICAL HISTORY: Trauma, head and neck injury. fall, head injury, hit nightstand COMPARISON: Head C Spine Mpr Wo Con dated 05/15/2021; Head C Spine Mpr Wo Con dated 07/08/2020; CT-SP [id number]-[id number] dated 12/09/2013 TECHNIQUE: Axial 5 mm thick images of the head were obtained. Axial 2 mm thick images of the cervical spine were obtained with sagittal and coronal reconstruction images generated and reviewed. All CT scans are performed using dose optimization technique as appropriate and may include automated exposure control or mA/KV adjustment according to patient size. FINDINGS: CT HEAD WITHOUT CONTRAST: No acute hemorrhage, hydrocephalus or extra-axial collection is identified.No areas of brain edema or midline shift. Small focus of hyper density along the midline cerebral falx as seen on image 25, ser ies 3. This corresponds with calcium that was present on prior CT but the motion on today's exam obsc ures the calcium. Chronic small vessel ischemic changes. Cerebral atrophy. Scalp swelling near the ve rtex of the skull. The paranasal sinuses and mastoids are clear.The calvarium is intact. CT CERVICAL SPINE WITHOUT CONTRAST: No fracture or subluxation.No prevertebral soft tissues swelling is identified. Surgically absent thy roid. Reversal of the normal cervical lordosis. This is likely related to underlying degenerative reinaldo nges. Cervical spondylosis is noted. Neural foraminal narrowing is noted that is most advanced at C5- 6 and C6-7. Anterolisthesis of C3 on C4 and C4 on C5 and retrolisthesis of C6 on C7 are likely relate d to underlying degenerative changes. IMPRESSION: No acute intracranial or cervical spine findings.
[2022-04-01 10:01] LABS: Potassium 3.1 mmol/L (3.5-5.1)
[2022-04-01 10:05] LABS: Protime INR 0.99
[2022-04-01 10:42] LABS: Platelet Estimate ADEQ; White Blood Cell Scan OK (OK)
[2022-04-01 10:43] LABS: Blood Morphology Comment NOT SEEN (NOT SEEN)
--- NOTE | 2022-04-01 11:05 | RAD REPORT ---
EXAM DESCRIPTION: RAD - Chest Single View - 04/01/2022 10:49 am CLINICAL HISTORY: BLUNT CHEST TRAUMA COMPARISON: Head Brain Wo Cont dated 09/23/2019Chest Pa And Lat (2 Views) dated 08/14/2017; CHEST SING LE VIEW dated 12/02/2013 FINDINGS: Lines: None. Lungs: No evidence of edema or pneumonia. Large lung volumes. Pleural: No significant pleural effusions or pneumothorax. Cardiac: The heart size is within normal limits. Mediastinum: Within normal limits. Bones: No acute fractures. Other: None IMPRESSION: No acute cardiopulmonary disease.
--- NOTE | 2022-04-01 11:08 | RAD REPORT ---
EXAM DESCRIPTION: RAD - Thoracic Spine Ap/Lat - 04/01/2022 10:49 am CLINICAL HISTORY: PAIN COMPARISON: Chest Single View dated 04/01/2022; Abdomen Pelvis W Contrast dated 01/08/2022; Lumbar Sp ine 3 Views dated 04/01/2022; Head C Spine Mpr Wo Con dated 04/01/2022 FINDINGS/IMPRESSION: Limited by the degree of osteopenia. Mild superior endplate concavities in the lower thoracic spine are probably chronic. No findings to suggest an acute compression fracture is se en. If high clinical suspicion for thoracic spine fracture, consider CT.
--- NOTE | 2022-04-01 11:09 | RAD REPORT ---
EXAM DESCRIPTION: RAD - Lumbar Spine 3 Views - 04/01/2022 10:49 am CLINICAL HISTORY: LOWER BACK PAIN COMPARISON: No comparisons FINDINGS: No acute fracture. Levoconvexity centered at L2-3. Grade 1 anterolisthesis of L4 on L5. Mi ld to moderate disc height loss L5-S1. Facet degenerative changes at L4-5 and L5-S1. IMPRESSION: No acute osseous abnormality involving the lumbar spine.
--- NOTE | 2022-04-01 11:10 | RAD REPORT ---
EXAM DESCRIPTION: RAD - Pelvis - 04/01/2022 10:49 am CLINICAL HISTORY: BLUNT TRAUMA COMPARISON: No comparisons FINDINGS/IMPRESSION: No acute fracture. No malalignment. No significant focal degenerative changes.
--- NOTE | 2022-04-01 11:12 | EDPHYS ---
Physician Documentation [facility] Name: Kayleigh Pena Age: 76 yrs Sex: Female : 1945 Arrival Date: 04/01/2022 Time: 09:27 Bed 7 Private MD: ED Physician Marcus Georges HPI: 04/01 09:42 This 76 yrs old Female presents to ER via EMS with complaints of fall. rn 09:42 Onset: The symptoms/episode began/occurred just prior to arrival. Associated injuries: rn The patient sustained injury to the head, neck injury, upper back injury. Severity of symptoms: At their worst the symptoms were mild, in the emergency department the symptoms are unchanged. The patient has experienced similar episodes in the past. The patient has not recently seen a physician. EMS reports found on ground by family, fell, unknown if out of bed of standing, patient reports hit head on nightstand, hurts at neck and mid back. Doesn't recall why or how she fell. Family reports previous head injury in past that has affected her memory. . Historical: - Allergies: 09:35 Amoxicillin; jl 09:35 Morphine; 09:35 Neosporin ([id number]); jl 09:35 PENICILLINS; jl 09:35 Tape; jl - Home Meds: 09:35 amlodipine 2.5 mg oral tab once daily [Active]; donepezil 5 mg oral tab once daily jl7 [Active]; mirtazapine 7.5 mg Oral tab 1 tab once daily [Active]; Synthroid 50 mcg Oral tab once daily [Active]; olmesartan-hydrochlorothiazide 40-12.5 mg oral tab 1 tab once daily [Active]; rosuvastatin 20 mg Oral tab once daily [Active]; - PMHx: 09:35 Hypertension; Dementia; Hypercholesterolemia; jl7 - PSHx: 09:35 Total abdominal hysterectomy; jl - Immunization history:: Client reports receiving the 2nd dose of the Covid vaccine. - Social history:: Smoking status: Patient denies any tobacco usage or history of. - Family history:: not pertinent. - Hospitalizations: : No recent hospitalization is reported. ROS: 09:42 Constitutional: Negative for fever, chills, and weight loss, Eyes: Negative for injury, rn pain, redness, and discharge, Neck: + neck pain Cardiovascular: Negative for chest pain, palpitations, and edema, Respiratory: Negative for shortness of breath, cough, wheezing, and pleuritic chest pain, Abdomen/GI: Negative for abdominal pain, nausea, vomiting, diarrhea, and constipation, Back: + mid back pain : Negative for injury, bleeding, discharge, and swelling, MS/Extremity: Negative for injury and deformity, Skin: Negative for injury, rash, and discoloration, Neuro: Negative for numbness, tingling, and seizure. Exam: 09:42 Constitutional: This is a well developed, well nourished patient who is awake, alert, rn and in no acute distress. Sitting up in bed on her own. Head/Face: Normocephalic, 1 cm superficial laceration left sikhism/scalp. No active bleeding, no foreign body. Eyes: Pupils equal round and reactive to light, extra-ocular motions intact. ENT: dry MM, no oral trauma Neck: IN ccollar, no midline tenderness Chest/axilla: Normal chest wall appearance and motion. Nontender with no deformity. No lesions are appreciated. Cardiovascular: Regular rate and rhythm. No pulse deficits. Respiratory: No increased work of breathing, no retractions or nasal flaring. Abdomen/GI: Soft, non-tender Back: No spinal tenderness. + upper lumbar/lower thoracic paraspinal tenderness. No ecchymosis or swelling. Skin: Warm, dry MS/ Extremity: Pulses equal, no cyanosis. Neuro: Awake and alert, GCS 15, oriented to person, place, and situation. Cranial nerves II-XII grossly intact. Motor strength 4/5 in all extremities. Sensory grossly intact. Vital Signs: 09:31 BP 190 / 84; Pulse 86; Resp 17; Temp 98.5; Pulse Ox 100% ; Weight 52.5 kg; Height 5 ft. jl7 7 in. (170.18 cm); Pain 4/10; 10:48 BP 190 / 76; Pulse 70; Resp 15; Pulse Ox 97% ; jl7 11:37 BP 180 / 69; Pulse 62; Resp 15; Pulse Ox 99% ; jl7 09:31 Body Mass Index 18.13 (52.50 kg, 170.18 cm) jl7 Laceration: 13:20 Wound Repair of 1cm ( 0.4in ) subcutaneous laceration to left scalp. Distal rn neuro/vascular/tendon intact. Wound prep: Extensive cleansing by nurse, Wound explored. Skin closed with 2 35R [place] using staple gun. Patient tolerated well. MDM: 09:29 Patient medically screened. rn 11:11 Differential diagnosis: closed head injury, contusion, fracture, sprain, strain. Data rn reviewed: vital signs, nurses notes, lab test result(s), radiologic studies, CT scan, plain films, and as a result, I will discharge patient. Counseling: I had a detailed discussion with the patient and/or guardian regarding: the historical points, exam findings, and any diagnostic results supporting the discharge/admit diagnosis, lab results, radiology results, the need for outpatient follow up, to return to the emergency department if symptoms worsen or persist or if there are any questions or concerns that arise at home. Response to treatment: the patient's symptoms have mildly improved after treatment, and as a result, I will discharge patient. Special discussion: I discussed with the patient/guardian in detail that at this point there is no indication for admission to the hospital. It is understood, however, that if the symptoms persist or worsen the patient needs to return immediately for re-evaluation. 12:54 ED course: Pt able to ambulate around ER, feels much better, wants to go home, UA neg.. rn 04/01 09:31 Order name: CBC with Diff; Complete Time: 10:54 rn 04/01 09:31 Order name: Basic Metabolic Panel; Complete Time: 10:15 rn 04/01 09:31 Order name: Protime (+inr); Complete Time: 10:15 rn 04/01 09:31 Order name: Ptt, Activated; Complete Time: 10:15 rn 04/01 10:43 Order name: CBC Smear Scan; Complete Time: 10:54 EDMS 04/01 11:22 Order name: Urine Microscopic Only; Complete Time: 12:54 rn 04/01 09:31 Order name: IV Start; Complete Time: 09:40 rn 04/01 09:31 Order name: CT Head C Spine; Complete Time: 10:15 rn 04/01 09:31 Order name: XRAY Chest (1 view); Complete Time: 11:10 rn 04/01 09:31 Order name: XRAY Pelvis; Complete Time: 11:10 rn 04/01 09:31 Order name: XRAY Thoracic Spine (Ap/lat); Complete Time: 11:10 rn 04/01 09:31 Order name: XRAY Lumbar Spine (3 Views); Complete Time: 11:10 rn 04/01 12:10 Order name: Urine Dipstick-Ancillary; Complete Time: 12:54 EDMS 04/01 11:22 Order name: Urine Dipstick-Ancillary (obtain specimen); Complete Time: 12:09 rn Administered Medications: 11:25 Drug: NS 0.9% 1000 ml Route: IV; Rate: 1000 ml; Site: right antecubital; jl7 12:30 Follow up: Response: No adverse reaction; IV Status: Completed infusion; IV Intake: jl7 1000ml Disposition Summary: 04/01/22 12:56 Discharge Ordered Location: Home(04/01/22 12:56) rn Problem: new(04/01/22 12:56) rn Symptoms: have improved(04/01/22 12:56) rn Condition: Stable(04/01/22 12:56) rn Diagnosis - Fall on same level, unspecified(04/01/22 12:56) rn - Dehydration rn Followup: rn - With: Private Physician - When: 7 - 10 days - Reason: Recheck today's complaints, Staple/Suture removal, Re-evaluation by your physician Discharge Instructions: - Discharge Summary Sheet rn - Dehydration, Adult rn - Fall Prevention in the Home, Adult rn Forms: - Medication Reconciliation Form rn - Thank You Letter rn - 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 Sitting up in bed on her own. Head/Face: Normocephalic, atraumatic. Eyes: Pupils equal round and reactive to light, extra-ocular motions intact. ENT: dry MM, no oral trauma Neck: IN ccollar, no midline tenderness Chest/axilla: Normal chest wall appearance and motion. Nontender with no deformity. No lesions are appreciated. Cardiovascular: Regular rate and rhythm. No pulse deficits. Respiratory: No increased work of breathing, no retractions or nasal flaring. Abdomen/GI: Soft, non-tender Back: No spinal tenderness. + upper lumbar/lower thoracic paraspinal tenderness. No ecchymosis or swelling. Skin: Warm, dry MS/ Extremity: Pulses equal, no cyanosis. Neuro: Awake and alert, GCS 15, oriented to person, place, and situation. Cranial nerves II-XII grossly intact. Motor strength 4/5 in all extremities. Sensory grossly intact. rn
--- NOTE | 2022-04-01 11:12 | ER ---
Nurse's Notes [facility] Name: Kayleigh Pena Age: 76 yrs Sex: Female : 1945 Arrival Date: 04/01/2022 Time: 09:27 Bed 7 Private MD: Diagnosis: Fall on same level, unspecified;Dehydration Presentation: 04/01 09:31 Chief complaint: EMS states: Toned out for unwitnessed fall, found on ground by family jl7 this morning, pt reports did hit head, with pain to posterior ribs, denies pain to head with palpation. Coronavirus screen: Vaccine status: Patient reports receiving the 2nd dose of the covid vaccine. At this time, the client does not indicate any symptoms associated with coronavirus-19. Ebola Screen: No symptoms or risks identified at this time. Initial Sepsis Screen: Does the patient meet any 2 criteria? No. Patient's initial sepsis screen is negative. Does the patient have a suspected source of infection? No. Patient's initial sepsis screen is negative. Risk Assessment: Do you want to hurt yourself or someone else? Patient reports no desire to harm self or others. Onset of symptoms was April 01, 2022 at 03:00. Care prior to arrival: Cervical collar in place. Medication(s) given: Tylenol, 650 IVP IV initiated. 20 GA, in the right antecubital area. 09:31 Method Of Arrival: EMS: [facility] 7 09:31 Acuity: ROYA 3 jl7 Triage Assessment: 09:30 General: Appears in no apparent distress. uncomfortable, Behavior is calm, cooperative, jl7 appropriate for age. Pain: Complains of pain in left mid back and right mid back Pain currently is 4 out of 10 on a pain scale. Neuro: Rdz Agitation-Sedation Scale (RASS): 0 - Alert and Calm Level of Consciousness is awake, alert, obeys commands, Oriented to person, place, time, situation. Cardiovascular: Patient's skin is warm and dry. Respiratory: Airway is patent Respiratory effort is even, unlabored, Respiratory pattern is regular, symmetrical. Derm: Skin is pink, warm \T\ dry. Historical: - Allergies: 09:35 Amoxicillin; jl7 09:35 Morphine; jl7 09:35 Neosporin ([id number]); jl7 09:35 PENICILLINS; jl7 09:35 Tape; jl7 - Home Meds: 09:35 amlodipine 2.5 mg oral tab once daily [Active]; donepezil 5 mg oral tab once daily jl7 [Active]; mirtazapine 7.5 mg Oral tab 1 tab once daily [Active]; Synthroid 50 mcg Oral tab once daily [Active]; olmesartan-hydrochlorothiazide 40-12.5 mg oral tab 1 tab once daily [Active]; rosuvastatin 20 mg Oral tab once daily [Active]; - PMHx: 09:35 Hypertension; Dementia; Hypercholesterolemia; jl7 - PSHx: 09:35 Total abdominal hysterectomy; jl7 - Immunization history:: Client reports receiving the 2nd dose of the Covid vaccine. - Social history:: Smoking status: Patient denies any tobacco usage or history of. - Family history:: not pertinent. - Hospitalizations: : No recent hospitalization is reported. Screenin:42 Abuse screen: Denies threats or abuse. Denies injuries from another. Nutritional jl7 screening: No deficits noted. Tuberculosis screening: No symptoms or risk factors identified. Fall Risk Fall in past 12 months (25 points). IV access (20 points). Total Zelaya Fall Scale indicates High Risk Score (45 or more points). Fall prevention measures have been instituted. Side Rails Up X 2 Placed Close to Nursing Station Frequent Obs/Assessments Occuring Family Present and informed to notify staff if the need to leave the bedside As available patient and family educated on Fall Prevention Program and Strategies. Assessment: 10:49 Reassessment: Patient appears in no apparent distress at this time. No changes from jl7 previously documented assessment. Patient and/or family updated on plan of care and expected duration. Pain level reassessed. Patient is alert, oriented x 3, equal unlabored respirations, skin warm/dry/pink. 11:00 Reassessment: ERD notified of BP, pt reports she take HTN medication at home and will jl7 take it when she gets home, no new orders received at this time. 11:20 Reassessment: Pt will be discharged after fluids are done infusing. jl7 11:37 Reassessment: Pt's reports pt has a skin tear to left forearm that he bandaged jl7 and is unable to get the bandage off, reports it's stuck to the dried blood. Pt's bandage removed with NS and dressed with triple antibiotic ointment, non stick gauze and tegaderm. 12:45 Reassessment: Ambulated pt approximately 50 ft, pt steady with assistance, ERD notified.jl7 13:00 Reassessment: On discharge pt's asked about the laceration on pt's head, jl7 Informed that no laceration was found on assessment and pt's reported she was found on the ground with blood on the floor. Upon further inspection a small laceration to left temporal area was noted, ERD notified and placed 2 kathryn at that time. Vital Signs: 09:31 BP 190 / 84; Pulse 86; Resp 17; Temp 98.5; Pulse Ox 100% ; Weight 52.5 kg; Height 5 ft. jl7 7 in. (170.18 cm); Pain 4/10; 10:48 BP 190 / 76; Pulse 70; Resp 15; Pulse Ox 97% ; jl7 11:37 BP 180 / 69; Pulse 62; Resp 15; Pulse Ox 99% ; jl7 09:31 Body Mass Index 18.13 (52.50 kg, 170.18 cm) jl7 ED Course: 08:35 Initial lab(s) drawn, by ED staff, sent to lab. EKG done, by ED staff, reviewed by rebecca Georges MD. 09:27 Patient arrived in ED. bd 09:29 Marcus Georges MD is Attending Physician. rn 09:31 Ruby Ch RN is Primary Nurse. jl7 09:35 Triage completed. jl7 09:35 Arm band placed on right wrist. jl7 09:35 Client placed on continuous cardiac and pulse oximetry monitoring. NIBP monitoring jl7 applied. 09:40 Bed in low position. Call light in reach. Side rails up X 1. Door closed. Noise mb7 minimized. Warm blanket given. 09:40 CBC with Diff Sent. mb7 09:40 Basic Metabolic Panel Sent. mb7 09:40 Protime (+inr) Sent. mb7 09:40 Ptt, Activated Sent. mb7 09:41 Maintain EMS IV. Dressing intact. Good blood return noted. Site clean \T\ dry. Gauge \T\ mb 7 site: 20 gauge in right AC.. 09:49 CT Head C Spine In Process Unspecified. EDMS 10:51 XRAY Chest (1 view) In Process Unspecified. EDMS 10:51 XRAY Pelvis In Process Unspecified. EDMS 10:51 XRAY Thoracic Spine (Ap/lat) In Process Unspecified. EDMS 10:51 XRAY Lumbar Spine (3 Views) In Process Unspecified. EDMS 11:36 Wound care: to abrasion, located on dorsal aspect of left forearm was cleaned with soap jl7 and water, dressed with Neosporin, 4X4s, Patient tolerated poorly. 12:09 Straight cath inserted, using sterile technique, 14 Fr. Returned clear yellow urine. jl7 Patient tolerated well. 13:00 Assist provider with laceration repair on left temporal area that was 2.5 cm. or less jl7 using kathryn. Set up tray. Performed by Marcus Georges MD Patient tolerated well. 13:00 IV discontinued, intact, bleeding controlled, No redness/swelling at site. Pressure jl7 dressing applied. Administered Medications: 11:25 Drug: NS 0.9% 1000 ml Route: IV; Rate: 1000 ml; Site: right antecubital; jl7 12:30 Follow up: Response: No adverse reaction; IV Status: Completed infusion; IV Intake: jl7 1000ml Medication: 09:42 VIS not applicable for this client. jl7 Intake: 12:30 IV: 1000ml; Total: 1000ml. jl7 Outcome: 11:12 Discharge ordered by MD. rn 12:56 Discharge ordered by MD. rn 13:10 Discharged to home ambulatory, with family. jl7 13:10 Condition: stable 13:10 Discharge instructions given to patient, family, Instructed on discharge instructions, follow up and referral plans. Demonstrated understanding of instructions, follow-up care. 13:37 Patient left the ED. jl7 Signatures: Dispatcher [employer] EDMS Ela Skinner Roman, MD MD rn Leal, Jahala, RN RN jl7 Breneman, Mary mb7 Corrections: (The following items were deleted from the chart) 09:41 09:40 Maintain EMS IV. Dressing intact. Good blood return noted. Site clean \T\ dry. mb7 Gauge \T\ site: 20 gauge in right AC.. Flushed mb7
[2022-04-01] MEDS ORDERED: NA CHLORIDE 0.9% 1,000 ML ONE (11:31)
[2022-04-01 12:10] LABS: Urine Blood Trace-intact (Negative); Urine Glucose Negative (Negative); Urine Protein 2+ (Negative); Urine Specific Gravity 1.025 (1.005-1.030)
[2022-04-01 12:31] LABS: Urine Bacteria <20 /HPF (<20); Urine RBC None Seen /HPF (None Seen)
[2022-04-01 13:46] VITALS: TEMP 98.5
[2022-04-01 13:52] VITALS: BP 180/69; O2SAT 99
== END 2022-04-01 13:37 | disposition home or self-care (01) ==
LOC: ER 09:25
DX: E86.0 Dehydration (principal); W18.30XA Fall on same level, unspecified, initial encounter; I10 Essential (primary) hypertension; F03.90 Unspecified dementia, unspecified severity, without behavioral disturbance, psychotic disturbance, mood disturbance, and anxiety; E78.00 Pure hypercholesterolemia, unspecified; Z88.0 Allergy status to penicillin; Z88.1 Allergy status to other antibiotic agents; Z88.3 Allergy status to other anti-infective agents; Z91.048 Other nonmedicinal substance allergy status
CPT/HCPCS: 85025; 80048; 36415; 85610; 85730; 70450; 72125; 71045; 72100; 72170; 72070; J7030; 51702; 81003; 81015; 96360; 99284